=== PATIENT | male | born 1955 | race African-American/Black ===

== ENCOUNTER 2018-12-24 22:36 | Inpatient (IN) | payer BC ==
--- NOTE | 2018-12-24 23:03 | PDOC ---
History of Present Illness - General Chief Complaint: Urinary Problem Stated Complaint: FEVER & URINE PROBLEMS Time Seen by Provider: 12/24/18 23:02 - History of Present Illness Initial Comments: 12/25/18 01:11 63 year old with a history of HTN, HLD, DM, has a defibrillator (on warfarin) who presents with 1 day of fever, dysuria, hematuria. He reports that the blood was streaked throughout his urine. He denies any recent instrumentation of the urethra. Denies wright or any other foreign object. He has no other complaints. ROS GENERAL/CONSTITUTIONAL: + fever or chills. No weakness. HEAD, EYES, EARS, NOSE AND THROAT: No sore throat. CARDIOVASCULAR: No chest pain or shortness of breath RESPIRATORY: No cough, wheezing, or hemoptysis. GASTROINTESTINAL: No nausea, vomiting, diarrhea or constipation. GENITOURINARY: + dysuria, frequency, or change in urination. MUSCULOSKELETAL: No joint or muscle swelling or pain. No neck or back pain. SKIN: No rash PE GENERAL: Awake, alert, and fully oriented, in no acute distress HEAD: No signs of trauma, normocephalic, atraumatic EYES: EOMI, sclera anicteric, conjunctiva clear ENT: oropharynx clear without exudates. Moist mucosa NECK: Normal ROM, supple LUNGS: No distress, speaks full sentences, clear to auscultation bilaterally HEART: Regular rate and rhythm, normal S1 and S2, no murmurs, rubs or gallops, peripheral pulses normal and equal bilaterally. ABDOMEN: Soft, nontender No guarding, no rebound. No masses EXTREMITIES : Normal inspection, Normal range of motion, no edema. No clubbing or cyanosis. NEUROLOGICAL: Cranial nerves II through XII grossly intact. Normal speech, no focal sensorimotor deficits SKIN: Warm, Dry, normal turgor, no rashes or lesions noted GENITAL: uncircumcised male, vertical lie of testes, blood at the urethral meatus, no inguinal lymphadenopathy, nontenderness to epididymal palpation, no erythema, lesions or ulcers MDM DDX including but not limited to: prostatitis vs uti W/U: - sepsis set TX: - tlyenol, rocephin, ivf ED Course: labs largely wnl US with 12 mm nonobstructing L renal stone moderate to severe prostate enlargement pending urine Destiney Ferreira, PGY2 Emergency Medicine 10/21/19 02:13 Past History - Psycho Social/Smoking Cessation Hx Smoking History: Never smoked Hx Alcohol Use: No Drug/Substance Use Hx: No *Physical Exam - Vital Signs Last Vital Signs Temp Pulse Resp BP Pulse Ox 102.4 F H 136 H 19 99/69 94 L 12/24/18 22:44 12/24/18 22:44 12/24/18 22:44 12/24/18 22:44 12/24/18 22:44 ED Treatment Course - LABORATORY CBC & Chemistry Diagram: 12/24/18 22:30 12/24/18 22:30 Discharge - Discharge Information Problems reviewed: Yes Clinical Impression/Diagnosis: Hematuria, Prostatitis, UTI (urinary tract infection) Condition: Stable - Admission Yes - Follow up/Referral Referrals: Moise Luna [Primary Care Provider] - - Patient Discharge Instructions - Post Discharge Activity
[2018-12-24] MEDS ORDERED: ACETAMINOPHEN 1000 MG/100 ML VIAL (NON FORMULARY) IVPB ONE (23:04)
[2018-12-24] MEDS ORDERED: SODIUM CHLORIDE 1,000 ML IV SCH (23:15)
[2018-12-24] MEDS ORDERED: CEFTRIAXONE 1 GM in DEXTROSE 5%-WATER - 100 ML IVPB ONE (23:28)
[2018-12-24] MEDS ORDERED: CEFTRIAXONE 2 GM in DEXTROSE 5%-WATER - 100 ML IVPB ONE (23:41)
[2018-12-24] MEDS ORDERED: CEFTRIAXONE 2 GM/100 ML BAG IVPB ONE (23:57)
[2018-12-25] MEDS ORDERED: CEFTRIAXONE 2 GM-D5W BAG 2 GM/50 ML BAG IVPB ONE
[2018-12-25 00:18] LABS: BASO % 0.5 % (0-2.0); HEMATOCRIT 43.9 % (35.4-49); HEMOGLOBIN 14.6 GM/dL (11.7-16.9); MCH 29.3 pg (25.7-33.7); MCHC 33.2 g/dl (32.0-35.9); MEAN CELL VOLUME 88.3 fl (80-96); MEAN PLT VOLUME 8.1 fl (7.5-11.1); MONO % 6.2 % (3.8-10.2); NEUT % 88.3 % (42.8-82.8); PLATELET COUNT 249 K/MM3 (134-434); RBC 4.97 M/mm3 (4.00-5.60); RDW 13.1 % (11.9-15.9); WHITE BLOOD COUNT 12.9 K/mm3 (4.0-10.0)
[2018-12-25 00:45] LABS: ALBUMIN 3.5 g/dl (3.4-5.0); BILIRUBIN,TOTAL 0.6 mg/dL (0.2-1); BLOOD UREA NITROGEN 20.7 mg/dL (7-18); CREATININE 1.5 mg/dL (0.55-1.3); POTASSIUM 3.6 mmol/L (3.5-5.1); TOT PROT 7.6 g/dl (6.4-8.2)
[2018-12-25 02:29] LABS: INR 2.71 (0.83-1.09); PROTHROMBIN TIME (PATIENT) 32.3 SEC (9.7-13.0)
[2018-12-25 02:30] LABS: URINE APPEARANCE CLOUDY; URINE BILIRUBIN NEGATIVE (NEGATIVE); URINE COLOR YELLOW; URINE GLUCOSE (UA) NEGATIVE (NEGATIVE); URINE KETONE NEGATIVE (NEGATIVE)
[2018-12-25 02:31] LABS: URINE PROTEIN 3+ (NEGATIVE); URINE UROBILINOGEN 0.2 mg/dL (0.2-1.0)
[2018-12-25 02:32] LABS: URINE LEUK ESTERASE 2+ (NEGATIVE); URINE NITRITE NEGATIVE (NEGATIVE)
[2018-12-25 02:44] LABS: EPI CELLS 3 /HPF (0-5/HPF); URINE BACTERIA 105 /hpf (NEGATIVE); URINE RBC 360 /hpf (0-4); URINE WBC 245 /hpf (0-5)
--- NOTE | 2018-12-25 03:26 | HP ---
CHIEF COMPLAINT: hematuria PCP: Dr. Luna; Cardio Dr. Sams (at [facility]) HISTORY OF PRESENT ILLNESS: 63 y.o. M PMH HTN, HLD, BPH, ICD placed 6 yrs ago (& on coumadin) presenting with fever, dysuria and hematuria x 1 day duration. Patient says that over the past few years he has been having hesitancy w/ urination. Yesterday he began to have dysuria and noticed a few drops of blood at the urethral meatus post-void. The dysuria felt like a burning sensation. He denies seeing blood in the toilet during urination. He is also having bilateral testicular pain which has been present for the past few days. Pt says he has seen a urologist in the past and was on flomax but self d/c'd it because it did not work for him. Denies any recent urethral instrumentation. The patient is currently sexually active with 1 partner, his ; denies any recent STI testing but says he has never had or been treated for an STI in the past. ER course was notable for: (1) NA 1L, 1g iv tylenol (2) Rocephin 2mg (3) Recent Travel: denies PAST MEDICAL HISTORY: as per hpi PAST SURGICAL HISTORY: ICD placed 6 yrs ago Social History: lives w/ . works in a supermarket. Smoking: denies Alcohol: denies Drugs: denies Allergies No Known Allergies Allergy (Verified 12/25/18 03:23) PHYSICAL EXAMINATION Vital Signs - 24 hr 12/24/18 22:44 Temperature 102.4 F H Pulse Rate 136 H Respiratory 19 Rate Blood Pressure 99/69 O2 Sat by Pulse 94 L Oximetry (%) GENERAL: AOx3. In NAD> HEENT: MMM. No scleral icterus LUNGS: Breath sounds equal, clear to auscultation bilaterally. No wheezes, and no crackles. No accessory muscle use. HEART: Tachycardic, normal S1 and S2 without murmur, rub or gallop. ABDOMEN: + Suprapubic tenderness. Soft, not distended, normoactive bowel sounds. MUSCULOSKELETAL: No CVA tenderness. : + serosanguinous discharge at urethral meatus. Tenderness to palpation of b/ l testicles. L testicle is firm. RECTAL: Enlarged, boggy prostate. No nodules palpated; prostate is smooth, tender to palpation. UPPER EXTREMITIES: 2+ pulses. No peripheral edema. LOWER EXTREMITIES: 2+ pulses palpated b/l. No calf tenderness. No peripheral edema. Laboratory Results - last 24 hr 12/24/18 12/24/18 12/24/18 22:30 22:30 22:30 WBC 12.9 H RBC 4.97 Hgb 14.6 Hct 43.9 MCV 88.3 MCH 29.3 MCHC 33.2 RDW 13.1 Plt Count 249 MPV 8.1 Absolute Neuts (auto) 11.3 H Neutrophils % 88.3 H Lymphocytes % 5.0 L Monocytes % 6.2 Eosinophils % 0.0 Basophils % 0.5 Nucleated RBC % 0 PT with INR INR PTT (Actin FS) 46.6 H Sodium 135 L Potassium 3.6 Chloride 103 Carbon Dioxide 23 Anion Gap 8 BUN 20.7 H Creatinine 1.5 H Est GFR (CKD-EPI)AfAm 56.21 Est GFR (CKD-EPI)NonAf 48.50 Random Glucose 121 H Lactic Acid Calcium 9.0 Total Bilirubin 0.6 AST 29 ALT 32 Alkaline Phosphatase 71 Total Protein 7.6 Albumin 3.5 Urine Color Urine Appearance Urine pH Ur Specific [place] Urine Protein Urine Glucose (UA) Urine Ketones Urine Blood Urine Nitrite Urine Bilirubin Urine Urobilinogen Ur Leukocyte Esterase Urine WBC (Auto) Urine RBC (Auto) U Epithel Cells (Auto) Urine Bacteria (Auto) 12/24/18 12/24/18 12/25/18 22:30 22:30 00:48 WBC RBC Hgb Hct MCV MCH MCHC RDW Plt Count MPV Absolute Neuts (auto) Neutrophils % Lymphocytes % Monocytes % Eosinophils % Basophils % Nucleated RBC % PT with INR 32.30 H INR 2.71 H PTT (Actin FS) Sodium Potassium Chloride Carbon Dioxide Anion Gap BUN Creatinine Est GFR (CKD-EPI)AfAm Est GFR (CKD-EPI)NonAf Random Glucose Lactic Acid 1.1 Calcium Total Bilirubin AST ALT Alkaline Phosphatase Total Protein Albumin Urine Color Yellow Urine Appearance Cloudy Urine pH 5.0 Ur Specific [place] 1.020 Urine Protein 3+ H Urine Glucose (UA) Negative Urine Ketones Negative Urine Blood Large Urine Nitrite Negative Urine Bilirubin Negative Urine Urobilinogen 0.2 Ur Leukocyte Esterase 2+ H Urine WBC (Auto) 245 Urine RBC (Auto) 360 U Epithel Cells (Auto) 3 Urine Bacteria (Auto) 105 IMAGING Renal U/S: Right is 11.1 cm in length. There is a 2.6 cm complex cyst in the lower pole and 2.8cm complex cyst in the midpole. No stones or hydronephrosis. Left kidney is 13.3 cm in length and contains a 12 mm nonobstructing mid pole stone. 5.1 cm lower pole cyst and 2.0 cm midpole cysts are noted. Prostate gland is moderately to markedly enlarged measuring 6.7 x 5.5 x 6.2 cm. Bilateral ureteral jets identified. There is moderate postvoid residual ASSESSMENT/PLAN: 63 y.o. M PMH HTN, HLD, BPH, ICD placed 6 yrs ago (& on coumadin) presenting with fever, dysuria and hematuria x 1 day duration. #Sepsis 2/2 acute complicated UTI/ prostatitis -Leukocytosis 12.9 -Febrile 102.4F; tachycardic -Renal labs: BUN/Cr 20.7/ 1.5; f/u AM repeat labs -Renal U/s shows enlarged prostate & 12mm non-obstructing L renal stone. Few renal cysts present b/l. -C/w rocephin 1g daily -F/u scrotal U/S -Urology consulted- Dr. Delgado -F/u urine lytes, cultures -IVF -Given 5mg PO vitamin K -Flomax daily #HTN -C/w home meds-- ramipril as per patient, unsure of dose-- med rec -F/u EKG #HLD -F/u w/ pharmacy for med list #FEN -IVF NS @ 100mL/hr -Trend lytes -Na controlled diet #DVT PPX -holding home warfarin; INR in therapeutic range -SCDs #Dispo -Med surg F/u HbA1c-- pt denies having diabetes during our interview ATTENDING PHYSICIAN STATEMENT I saw and evaluated the patient. I reviewed the resident's note and discussed the case with the resident. I agree with the resident's findings and plan as documented. SUBJECTIVE: OBJECTIVE: ASSESSMENT AND PLAN:
[2018-12-25] MEDS: SODIUM CHLORIDE 1,000 ML IV SCH ×2 (04:16→22:10)
--- NOTE | 2018-12-25 04:21 | PN ---
Teaching Attending Note Name of Resident: Destiney Garcia ATTENDING PHYSICIAN STATEMENT I saw and evaluated the patient. I reviewed the resident's note and discussed the case with the resident. I agree with the resident's findings and plan as documented. SUBJECTIVE: 63-year-old -[place]inese male With history of BPH and ICD placement for uncertain reason. complains of fevers and chills associated with burning with urination for 1 day.He reports blood exiting from his urethral meatus post voiding however during voiding states that his urine is yellow. Denies any other discharge from his penis. Reports left tender testicle. Denies any back pain. OBJECTIVE: Last Vital Signs Temp Pulse Resp BP Pulse Ox 102.4 F H 136 H 19 99/69 94 L 12/24/18 22:44 12/24/18 22:44 12/24/18 22:44 12/24/18 22:44 12/24/18 22:44 GENERAL: Well developed, well nourished. Awake and alert. Appeared uncomfortable HEENT: Normocephalic, atraumatic. PERRLA, EOMI. No conjunctival pallor. Sclera are non- icteric. Moist mucous membranes. Oropharynx is clear. NECK: Supple. Full ROM. No JVD. Carotid pulses 2+ and symmetric, without bruits. No thyromegaly. No lymphadenopathy. CARDIOVASCULAR: Regular rate and rhythm. No murmurs, rubs, or gallops. Distal pulses are 2+ and symmetric. PULMONARY: No evidence of respiratory distress. Lungs clear to auscultation bilaterally. No wheezing, rales or rhonchi. ABDOMINAL: Soft. Non-tender. Non-distended. No rebound or guarding. No organomegaly. Normoactive bowel sounds. MUSCULOSKELETAL Normal range of motion at all joints. No bony deformities or tenderness. No CVA tenderness. EXTREMITIES: No cyanosis. No clubbing. No edema. No calf tenderness. SKIN: Warm and dry. Normal capillary refill. No rashes. No jaundice. PSYCHIATRIC: Cooperative. Good eye contact. Appropriate mood and affect. GUtender left testicle, bloody urethral discharge Abnormal Lab Results 12/24/18 12/24/18 12/24/18 22:30 22:30 22:30 WBC 12.9 H Absolute Neuts (auto) 11.3 H Neutrophils % 88.3 H Lymphocytes % 5.0 L PT with INR INR PTT (Actin FS) 46.6 H Sodium 135 L BUN 20.7 H Creatinine 1.5 H Random Glucose 121 H Urine Protein Ur Leukocyte Esterase 12/24/18 12/25/18 22:30 00:48 WBC Absolute Neuts (auto) Neutrophils % Lymphocytes % PT with INR 32.30 H INR 2.71 H PTT (Actin FS) Sodium BUN Creatinine Random Glucose Urine Protein 3+ H Ur Leukocyte Esterase 2+ H pcp-dr mckeon [id number] ASSESSMENT AND PLAN: 63-year-old male with Sepsis secondary to a complicated urinary tract infection. Positive leukocytosis Suspect acute prostatitis and epididymitis. Patient had tender prostate on resident's exam. Most likely secondary to a gram- negative bacteria however should rule out gonorrhea and chlamydia. Bloody urethral discharge may be related to patient being on Coumadin. Unclear reason for why patient is on Coumadin. Requires clarification. MADDY versus CKDno previous baseline kidney function to compare. Admit to [facility] Blood cultures and urine culture Urine GC chlamydia nucleic acid amplification Lactate Flu swab Avoid aspirin or other antiplatelet agents Monitor vital signs and H&H Urology evaluation Ceftriaxone 1 g every 24 hours Chest x-ray IV fluid hydration Avoid nephrotoxins Renal ultrasound EKG In setting of bloody urine would hold Coumadin and give vitamin K to reverse coagulopathy Contact PCP to find out why patient is on Coumadin SCDs for DVT prophylaxis
[2018-12-25] MEDS ORDERED: PHYTONADIONE 5 MG TABLET PO ONE (04:23)
--- NOTE | 2018-12-25 04:50 | PDOC ---
Documentation entered by Pranav Mcgregor SCRIBE, acting as scribe for Tonia Fernando MD. Tonia Fernando MD: This documentation has been prepared by the Balbir phillips Nirvannie, SCRIBE, under my direction and personally reviewed by me in its entirety. I confirm that the documentation accurately reflects all work, treatment, procedures, and medical decision making performed by me. Attending Attestation - Resident Resident Name: Destiney Ferreira - ED Attending Attestation I have performed the following: I have examined & evaluated the patient, The case was reviewed & discussed with the resident, I agree w/resident's findings & plan - HPI HPI: 12/25/18 01:24 The patient is a 63 year old male, with a significant past medical history of HTN, HLD, DM, s/p defibrillation (on Warfarin), who presents to the emergency department with, 1 day of Fever (Tmax 102.4F), dysuria, and hematuria. He denies any recent chest pain or shortness of breath. Primary Care Physician: Dr. Luna - Physicial Exam PE: 12/25/18 01:24 GENERAL: +Febrile. Awake, alert, and fully oriented, in no acute distress HEAD: No signs of trauma EYES: PERRLA, EOMI, sclera anicteric, conjunctiva clear ENT: Auricles normal inspection, hearing grossly normal, nares patent, oropharynx clear without exudates. Moist mucosa NECK: Normal ROM, supple, no lymphadenopathy, JVD, or masses LUNGS: Breath sounds equal, clear to auscultation bilaterally. No wheezes, and no crackles HEART: Regular rate and rhythm, normal S1 and S2, no murmurs, rubs or gallops ABDOMEN: Soft, nontender, normoactive bowel sounds. No guarding, no rebound. No masses PENIS: +Blood in the meatus. EXTREMITIES: Normal range of motion, no edema. No clubbing or cyanosis. No cords, erythema, or tenderness NEUROLOGICAL: Cranial nerves II through XII grossly intact. Normal speech SKIN: Warm, Dry, normal turgor, no rashes or lesions noted. - Medical Decision Making 12/24/18 23:37 Pt likely with prostatitis 12/25/18 01:12 EBC elevated; pt has minimally elevated BUN/Cr 12/25/18 04:49 Pt has prostatitis treated with levaquin and rocephin and admitted. Lactic is normal
[2018-12-25 05:53] LABS: HEMATOCRIT 39.9 % (35.4-49); HEMOGLOBIN 13.6 GM/dL (11.7-16.9); MCH 30.3 pg (25.7-33.7); MCHC 34.1 g/dl (32.0-35.9); MEAN CELL VOLUME 88.9 fl (80-96); MEAN PLT VOLUME 7.6 fl (7.5-11.1); PLATELET COUNT 219 K/MM3 (134-434); RBC 4.49 M/mm3 (4.00-5.60); RDW 13.4 % (11.9-15.9); WHITE BLOOD COUNT 15.5 K/mm3 (4.0-10.0)
[2018-12-25 06:04] LABS: BILIRUBIN,TOTAL 0.6 mg/dL (0.2-1); CALCIUM 8.2 mg/dL (8.5-10.1); CREATININE 1.7 mg/dL (0.55-1.3); MAGNESIUM 1.6 mg/dL (1.8-2.4); PHOSPHOROUS 3.4 mg/dL (2.5-4.9); POTASSIUM 3.9 mmol/L (3.5-5.1); TOT PROT 6.8 g/dl (6.4-8.2)
[2018-12-25] MEDS ORDERED: PHYTONADIONE 5 MG TABLET ONE (06:11)
[2018-12-25] MEDS ORDERED: ACETAMINOPHEN 1000 MG/100 ML VIAL (NON FORMULARY) IVPB ONE (06:59)
[2018-12-25 09:20] LABS: INR 2.41 (0.83-1.09); PROTHROMBIN TIME (PATIENT) 28.7 SEC (9.7-13.0)
[2018-12-25 09:23] LABS: ACTIVATED PTT 43.3 SECONDS (25.2-36.5)
[2018-12-25] MEDS: TAMSULOSIN HCL 0.4 MG CAP PO SCH (09:27)
[2018-12-25 12:11] VITALS: BMI 29.9
--- NOTE | 2018-12-25 13:05 | PN ---
Progress Note (short form) - Note Progress Note: ID CONSULT DICTATED GRAM NEGATIVE SEPSIS PROBABLE L EPIDIDYMITIS GROSS HEMATURIA AWAIT C/S SCROTAL US UROLOGY EVALUATION EMPIRIC MEROPENEM GC/ CHLAMYDIA/ QUANTIFERON FOR COMPLETENESS
--- NOTE | 2018-12-25 13:54 | CONS ---
INFECTIOUS DISEASE CONSULTATION DATE OF CONSULTATION: DATE OF DICTATION: 12/25/2018 HISTORY: The patient is a 63-year-old male history of diabetes mellitus evaluated for gram-negative bacteremia. The patient was in his usual state of health until 1 day prior to admission. He had gone to work, and after returning home, he developed abrupt onset of chills, subjective fever, dysuria, and gross hematuria. The patient states he developed dysuria and gross hematuria at the end of micturition. He presented to the emergency room where he was found to be febrile to 102.4. Adilson blood was noted at the urethral meatus. Patient now complains of pain in the left testicle. He denies any prior similar symptoms. He is followed on a yearly basis by his primary care physician and believes his PSAs have been normal. He denies prior history of sexually transmitted disease. He is . His is healthy. He has not had any recent urological procedures. He was born in [facility] in the [facility] and has been living in the [facility] for many years. No history of TB exposure. PAST MEDICAL HISTORY: Positive for diabetes mellitus, hypertension, hyperlipidemia. PAST SURGICAL HISTORY: Status post implanted defibrillator. ALLERGIES: No known allergies. MEDICATIONS: Include ceftriaxone, Levaquin, Flomax. SOCIAL HISTORY: He resides in the community with his significant other. Nonsmoker. Nondrinker. 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 SYSTEMS REVIEW: Neurologic: No loss of consciousness, seizure activity, focal weakness. Cardiac: Negative chest pain or palpitations. Respiratory: Negative cough or sputum production. Gastrointestinal: Negative vomiting or diarrhea. Genitourinary: As per HPI. LABORATORY DATA: White count 15.5, hematocrit 39.9, platelets 219, BUN 19, creatinine 1.7. Liver enzymes normal. Urinalysis 245 white cells, 360 red cells. Blood cultures, gram-negative rods. Sonogram of the kidneys and bladder reveal a nonobstructing left renal stone and an enlarged prostate. PHYSICAL EXAMINATION: General: He is awake and alert. He is in no acute distress at rest. Vital Signs: Temperature 102, blood pressure 109/62, pulse 94 regular, respirations 18 per minute. HEENT: Sclerae anicteric. Heart: Sounds S1, S2. Lungs: Clear. Abdomen: Soft. No suprapubic tenderness. Extremities: Negative for edema. Genitourinary: Examination of the genitalia, no penile shaft lesions noted. There is exquisite tenderness present left epididymis with no appreciable erythema or swelling. There is blood noted at the urethral meatus. IMPRESSION: 1. Gram-negative bacteremia/sepsis secondary to genitourinary focus. 2. Probable acute left epididymitis. 3. Gross hematuria. 4. Azotemia. 5. History of diabetes mellitus. PLAN: Await cultures and scrotal ultrasound. Urology evaluation. Empiric antibiotic coverage with Meropenem. Await GC and Chlamydia screen and QuantiFERON for completeness. Case discussed with patient's present at the time of the examination. Thank you for the kind referral. DICK JONES M.D. [id number]
--- NOTE | 2018-12-25 13:56 | CON.GU ---
Consult Consult Specialty:: Referred by:: Lani Reason for Consultation:: prostatitis - History of Present Illness Chief Complaint: fever, dysuria, hematuria History of Present Illness: 63 year old male, with a significant past medical history of HTN, HLD, DM, s/p defibrillation (on Warfarin), who presents to the emergency department with, 1 day of Fever (Tmax 102.4F), dysuria, and hematuria. He denies any recent chest pain or shortness of breath. cons req. Pt also c/o L testicular pain and diff voiding. Primary Care Physician: Dr. Luna - History Source History Provided By: Patient, Medical Record Limitations to Obtaining History: No Limitations - Alcohol/Substance Use Hx Alcohol Use: No - Smoking History Smoking history: Never smoked Have you smoked in the past 12 months: No Home Medications - Allergies Allergies/Adverse Reactions: Allergies Allergy/AdvReac Type Severity Reaction Status Date / Time No Known Allergies Allergy Verified 12/25/18 03:23 - Home Medications Home Medications: Ambulatory Orders Atorvastatin Ca [Lipitor] 40 mg PO HS 12/25/18 Metoprolol Succinate [Toprol Xl] 25 mg PO AM 12/25/18 Metoprolol Succinate [Toprol Xl] 100 mg PO DAILY 12/25/18 Ramipril [Altace] 5 mg PO AM 12/25/18 Warfarin Sodium [Coumadin] 7.5 mg PO DAILY 12/25/18 Review of Systems - Review of Systems Genitourinary: reports: Dysuria, Hematuria, Testicular Pain, Testicular Swelling Physical Exam- Vital Signs: Vital Signs Temperature 102 F H 12/25/18 09:00 Pulse Rate 94 H 12/25/18 09:00 Respiratory Rate 18 12/25/18 09:00 Blood Pressure 109/62 12/25/18 09:00 O2 Sat by Pulse Oximetry (%) 98 12/25/18 09:00 Constitutional: Yes: Well Nourished, No Distress, Calm Gastrointestinal: Yes: Normal Bowel Sounds, Soft Renal/: No: CVA Tenderness - Left, CVA Tenderness - Right Kidneys: Yes: WNL Pelvis: Yes: WNL, Bladder Non Palpable (L) Testicles: Yes: Tenderness Scrotum: Yes: Spermatocele (R), Varicocele (L), Other Penis: Yes: WNL Prostate Exam: Yes: Swollen, Tenderness Extremities: Yes: WNL Labs: CBC, BMP 12/25/18 05:24 12/25/18 05:24 Imaging - Results Ultrasound: Pending, Report Reviewed, Image Reviewed Problem List - Problems (1) Hematuria Code(s): R31.9 - HEMATURIA, UNSPECIFIED (2) Prostatitis Assessment/Plan: tamsulosin Code(s): N41.9 - INFLAMMATORY DISEASE OF PROSTATE, UNSPECIFIED (3) UTI (urinary tract infection) Code(s): N39.0 - URINARY TRACT INFECTION, SITE NOT SPECIFIED (4) Urethritis, nonspecific Code(s): N34.1 - NONSPECIFIC URETHRITIS (5) Renal calculus Code(s): N20.0 - CALCULUS OF KIDNEY (6) BPH loc w urin obs/LUTS Code(s): N40.1 - BENIGN PROSTATIC HYPERPLASIA WITH LOWER URINARY TRACT SYMP
[2018-12-25] MEDS ORDERED: MEROPENEM 1 GM VIAL (RESTRICTED TO ID) IVPB ONE ×2 (14:30→17:55)
[2018-12-25] MEDS ORDERED: DEXTROSE 5%-WATER 100 ML IVPB ONE ×2 (14:30→17:55)
[2018-12-25] MEDS: MEROPENEM 1 GM in DEXTROSE 5%-WATER 100 ML IVPB SCH ×2 (15:11→18:01)
[2018-12-25] MEDS: ACETAMINOPHEN 325 MG TABLET (FP) PO PRN (15:30)
--- NOTE | 2018-12-25 15:54 | EKG ---
Test Reason : Blood Pressure : / mmHG Vent. Rate : 090 BPM Atrial Rate : 090 BPM P-R Int : 162 ms QRS Dur : 176 ms QT Int : 416 ms P-R-T Axes : 041 -83 023 degrees QTc Int : 508 ms Atrial-sensed ventricular-paced rhythm Biventricular pacemaker detected ABNORMAL ECG NO PREVIOUS ECGS AVAILABLE Confirmed by ALISSA CLAY, HOMERO ([id number]) on 12/25/2018 3:53:36 PM Referred By: Confirmed By:HOMERO MAXWELL MD
--- NOTE | 2018-12-25 17:50 | CON.CARD ---
Consult Consult Specialty:: Cardiology Referred by:: Hospitalist Reason for Consultation:: Cardiac evaluation - History of Present Illness Chief Complaint: Admitted with hematuria History of Present Illness: Patient is a 63 year old male with underlying history of HTN, hypercholesterolemia, BPH and ICD who presents with fever, dysuria and hematuria. He denies chest pain, shortness of breath or palpitations. He denies paroxysmal nocturnal dyspnea or orthopnea. He denies headache or lightheadedness. He denies nausea, vomiting, diarrhea or abdominal pain. He also complains of testicular pain for the past few days. He has not had STDs in the past and denies kidney stones. He has had evaluation for NSVT and was ruled out for WPW or dual AV jessica pathway physiology. Building Cleaning Supervisor : Diana Velez MD EP : Marco Schmid MD ([facility]) - History Source History Provided By: Patient, Medical Record Limitations to Obtaining History: No Limitations - Past Medical History Cardio/Vascular: Yes: HTN, Hyperlipdemia, Other (Presence of AICD) - Past Surgical History Past Surgical History: Yes: AICD - Alcohol/Substance Use Hx Alcohol Use: No - Smoking History Smoking history: Never smoked Have you smoked in the past 12 months: No Home Medications - Allergies Allergies/Adverse Reactions: Allergies Allergy/AdvReac Type Severity Reaction Status Date / Time No Known Allergies Allergy Verified 12/25/18 03:23 - Home Medications Home Medications: Ambulatory Orders Atorvastatin Ca [Lipitor] 40 mg PO HS 12/25/18 Metoprolol Succinate [Toprol Xl] 25 mg PO AM 12/25/18 Metoprolol Succinate [Toprol Xl] 100 mg PO DAILY 12/25/18 Ramipril [Altace] 5 mg PO AM 12/25/18 Warfarin Sodium [Coumadin] 7.5 mg PO DAILY 12/25/18 Review of Systems - Review of Systems Constitutional: reports: Chills, Fever Cardiovascular: denies: Chest Pain, Palpitations, Shortness of Breath Respiratory: denies: Cough, Hemoptysis, Orthopnea, PND, SOB, SOB on Exertion Gastrointestinal: denies: Abdominal Pain Genitourinary: reports: Dysuria, Hematuria, Testicular Pain Musculoskeletal: denies: Back Pain, Joint Pain Neurological: denies: Dizziness, Headache, Seizure, Syncope Vital Signs: Vital Signs Temperature 100.8 F H 12/25/18 17:40 Pulse Rate 94 H 12/25/18 17:40 Respiratory Rate 18 12/25/18 17:40 Blood Pressure 129/76 12/25/18 15:00 O2 Sat by Pulse Oximetry (%) 98 12/25/18 09:00 Eyes: Yes: PERRL HENT: Yes: Atraumatic Neck: Yes: Supple Respiratory: Yes: CTA Bilaterally Gastrointestinal: Yes: Normal Bowel Sounds, Soft. No: Tenderness Renal/: Yes: Hematuria Cardiovascular: Yes: Regular Rate and Rhythm JVD: No PMI: Non-Displaced Heart Sounds: Yes: S1, S2. No: Gallop Edema: No - Other Data Labs, Other Data: CBC, BMP 12/25/18 05:24 12/25/18 05:24 INR, PTT INR 2.41 (0.83-1.09) H 12/25/18 08:20 Atrial sensed ventricular paced rhythm Imaging - Results Chest X-ray: Report Reviewed (Unremarkable) EKG: Report Reviewed Problem List - Problems (1) HTN (hypertension) Code(s): I10 - ESSENTIAL (PRIMARY) HYPERTENSION (2) Hypercholesterolemia Code(s): E78.00 - PURE HYPERCHOLESTEROLEMIA, UNSPECIFIED (3) Presence of implantable cardioverter-defibrillator (ICD) Code(s): Z95.810 - PRESENCE OF AUTOMATIC (IMPLANTABLE) CARDIAC DEFIBRILLATOR (4) BPH loc w urin obs/LUTS Code(s): N40.1 - BENIGN PROSTATIC HYPERPLASIA WITH LOWER URINARY TRACT SYMP (5) Hematuria Code(s): R31.9 - HEMATURIA, UNSPECIFIED (6) Prostatitis Code(s): N41.9 - INFLAMMATORY DISEASE OF PROSTATE, UNSPECIFIED (7) UTI (urinary tract infection) Code(s): N39.0 - URINARY TRACT INFECTION, SITE NOT SPECIFIED Assessment/Plan 1. Hematuria and dysuria suggests UTI, ? prostatitis 2. HTN 3. Hypercholesterolemia 4. Presence of ICD PLAN: 1. Patient states that he has been taking Warfarin because of thrombus (points to his heart). Will clarify the reason for anticoagulation. May need to hold if continues to have hematuria 2. Continue Metoprolol ER and Ramipril as tolerated. 3. Continue Atorvastatin 4. input noted 5. Empiric antibiotics coverage 6. Hydration 7. Obtain records from his director trial Further plans are to follow Isaak Lerma MD Follow up with his director trial upon discharge from hospital
--- NOTE | 2018-12-25 18:19 | PN ---
Teaching Attending Note Name of Resident: Star Bolden ATTENDING PHYSICIAN STATEMENT I saw and evaluated the patient. I reviewed the resident's note and discussed the case with the resident. I agree with the resident's findings and plan as documented. SUBJECTIVE: Patient complaining of left testicular pain. OBJECTIVE: Vital Signs Period Temp Pulse Resp BP Sys/Persaud Pulse Ox Last 24 Hr 98.2 F-102.8 F 90-136 17-19 99-129/62-76 94-98 HEART: S1S2, tachycardic LUNGS: Clear ABDOMEN: Soft, non-tender, non-distended, normal BS : Both testes tender to palpation L>R, (+) bloody drainage from urethra EXTREMITIES: No edema Laboratory Results - last 24 hr 12/24/18 12/24/18 12/24/18 22:30 22:30 22:30 WBC 12.9 H RBC 4.97 Hgb 14.6 Hct 43.9 MCV 88.3 MCH 29.3 MCHC 33.2 RDW 13.1 Plt Count 249 MPV 8.1 Absolute Neuts (auto) 11.3 H Neutrophils % 88.3 H Lymphocytes % 5.0 L Monocytes % 6.2 Eosinophils % 0.0 Basophils % 0.5 Nucleated RBC % 0 PT with INR INR PTT (Actin FS) 46.6 H Sodium 135 L Potassium 3.6 Chloride 103 Carbon Dioxide 23 Anion Gap 8 BUN 20.7 H Creatinine 1.5 H Est GFR (CKD-EPI)AfAm 56.21 Est GFR (CKD-EPI)NonAf 48.50 Random Glucose 121 H Hemoglobin A1c % Lactic Acid Calcium 9.0 Phosphorus Magnesium Total Bilirubin 0.6 AST 29 ALT 32 Alkaline Phosphatase 71 Total Protein 7.6 Albumin 3.5 Urine Color Urine Appearance Urine pH Ur Specific [place] Urine Protein Urine Glucose (UA) Urine Ketones Urine Blood Urine Nitrite Urine Bilirubin Urine Urobilinogen Ur Leukocyte Esterase Urine WBC (Auto) Urine RBC (Auto) U Epithel Cells (Auto) Urine Bacteria (Auto) 12/24/18 12/24/18 12/25/18 22:30 22:30 00:48 WBC RBC Hgb Hct MCV MCH MCHC RDW Plt Count MPV Absolute Neuts (auto) Neutrophils % Lymphocytes % Monocytes % Eosinophils % Basophils % Nucleated RBC % PT with INR 32.30 H INR 2.71 H PTT (Actin FS) Sodium Potassium Chloride Carbon Dioxide Anion Gap BUN Creatinine Est GFR (CKD-EPI)AfAm Est GFR (CKD-EPI)NonAf Random Glucose Hemoglobin A1c % Lactic Acid 1.1 Calcium Phosphorus Magnesium Total Bilirubin AST ALT Alkaline Phosphatase Total Protein Albumin Urine Color Yellow Urine Appearance Cloudy Urine pH 5.0 Ur Specific [place] 1.020 Urine Protein 3+ H Urine Glucose (UA) Negative Urine Ketones Negative Urine Blood Large Urine Nitrite Negative Urine Bilirubin Negative Urine Urobilinogen 0.2 Ur Leukocyte Esterase 2+ H Urine WBC (Auto) 245 Urine RBC (Auto) 360 U Epithel Cells (Auto) 3 Urine Bacteria (Auto) 105 12/25/18 12/25/18 12/25/18 05:24 05:24 05:24 WBC 15.5 H RBC 4.49 Hgb 13.6 Hct 39.9 MCV 88.9 MCH 30.3 MCHC 34.1 RDW 13.4 Plt Count 219 MPV 7.6 Absolute Neuts (auto) Neutrophils % Lymphocytes % Monocytes % Eosinophils % Basophils % Nucleated RBC % PT with INR INR PTT (Actin FS) Sodium 137 Potassium 3.9 Chloride 103 Carbon Dioxide 26 Anion Gap 8 BUN 19.0 H Creatinine 1.7 H Est GFR (CKD-EPI)AfAm 48.32 Est GFR (CKD-EPI)NonAf 41.69 Random Glucose 129 H Hemoglobin A1c % 5.9 Lactic Acid Calcium 8.2 L Phosphorus 3.4 Magnesium 1.6 L Total Bilirubin 0.6 AST 23 ALT 26 Alkaline Phosphatase 62 Total Protein 6.8 Albumin 3.0 L Urine Color Urine Appearance Urine pH Ur Specific [place] Urine Protein Urine Glucose (UA) Urine Ketones Urine Blood Urine Nitrite Urine Bilirubin Urine Urobilinogen Ur Leukocyte Esterase Urine WBC (Auto) Urine RBC (Auto) U Epithel Cells (Auto) Urine Bacteria (Auto) 12/25/18 12/25/18 08:20 08:20 WBC RBC Hgb Hct MCV MCH MCHC RDW Plt Count MPV Absolute Neuts (auto) Neutrophils % Lymphocytes % Monocytes % Eosinophils % Basophils % Nucleated RBC % PT with INR 28.70 H INR 2.41 H PTT (Actin FS) 43.3 H Sodium Potassium Chloride Carbon Dioxide Anion Gap BUN Creatinine Est GFR (CKD-EPI)AfAm Est GFR (CKD-EPI)NonAf Random Glucose Hemoglobin A1c % Lactic Acid 1.3 Calcium Phosphorus Magnesium Total Bilirubin AST ALT Alkaline Phosphatase Total Protein Albumin Urine Color Urine Appearance Urine pH Ur Specific [place] Urine Protein Urine Glucose (UA) Urine Ketones Urine Blood Urine Nitrite Urine Bilirubin Urine Urobilinogen Ur Leukocyte Esterase Urine WBC (Auto) Urine RBC (Auto) U Epithel Cells (Auto) Urine Bacteria (Auto) Current Medications Generic Name Dose Route Start Last Admin Trade Name Ilda PRN Reason Stop Dose Admin Acetaminophen 650 mg 12/25/18 15:13 12/25/18 15:30 Tylenol - PO 650 mg Q6H PRN Administration FEVER Sodium Chloride 1,000 mls @ 100 mls/hr 12/25/18 03:45 12/25/18 04:16 Normal Saline - IV 100 mls/hr ASDIR MURALI Administration Meropenem 1 gm/ Dextrose 100 mls @ 200 mls/hr 12/25/18 13:15 12/25/18 18:01 IVPB 200 mls/hr Q8H-IV MURALI Administration Tamsulosin HCl 0.4 mg 12/25/18 08:30 12/25/18 09:27 Flomax - PO 0.4 mg DAILY@0830 MURALI Administration ASSESSMENT AND PLAN: This is a 63 year old man with a history of HTN, hyperlipidemia, AICD, BPH, who presented to the ED with fever, dysuria, hematuria. 1. Sepsis secondary to acute prostatitis and epididymitis - Given Levaquin in ED then started on ceftriaxone - ID consult appreciated - Abx changed to meropenem - Urine culture pending - Blood cultures (2 of 2) positive - follow-up identification and sensitivities - GC, Chlamydia pending - Scrotal US shows right scrotal cyst likely spermatocele, large left varicocele 2. Gross hematuria - Renal/bladder US shows normal kidneys, 12 mm left kidney stone, markedly enlarged prostate with moderate PVR - Hold Coumadin - Monitor hemoglobin 3. Non-obstructing left nephrolithiasis 4. BPH - Continue Flomax 5. HTN - Continue Toprol XL, Altace 6. Hyperlipidemia - Continue Lipitor 7. History of AICD - Patient unclear about why he has AICD, also about why he is taking Coumadin - ? cardiomyopathy - will try to obtain prior records
[2018-12-25] MEDS ORDERED: MAGNESIUM OXIDE 400 MG TABLET (FP) PO ONE (18:34)
--- NOTE | 2018-12-25 18:39 | PN ---
Physical Exam: SUBJECTIVE: Patient seen and examined NAEON. Endorses pain to Left testicle >Right. OBJECTIVE: Vital Signs Period Temp Pulse Resp BP Sys/Persaud Pulse Ox Last 24 Hr 98.2 F-102.8 F 90-136 17-19 99-129/62-76 94-98 GENERAL: The patient is awake, alert, in no acute distress. HEAD: NC/AT EYES: sclera anicteric, conjunctiva clear. ENT: Ears normal, nares patent, moist mucous membranes. NECK: Trachea midline, full range of motion, supple. LUNGS: CTA b/l, no wheezes, no crackles, no accessory muscle use. HEART: Regular rate and rhythm, S1, S2 without murmur, rub or gallop. ABDOMEN: Soft, nontender, nondistended, no guarding, no rebound, no masses. GROIN: tendernes to SRUTHI of prostate. TTP of Left epipdymitis, seromucopurulent drainage of meatus EXTREMITIES: 2+ pulses, warm, well-perfused, no edema. NEUROLOGICAL: Normal speech PSYCH: Normal mood, normal affect. SKIN: Warm, dry, normal turgor, no rashes or lesions noted Laboratory Results - last 24 hr 12/24/18 12/24/18 12/24/18 22:30 22:30 22:30 WBC 12.9 H RBC 4.97 Hgb 14.6 Hct 43.9 MCV 88.3 MCH 29.3 MCHC 33.2 RDW 13.1 Plt Count 249 MPV 8.1 Absolute Neuts (auto) 11.3 H Neutrophils % 88.3 H Lymphocytes % 5.0 L Monocytes % 6.2 Eosinophils % 0.0 Basophils % 0.5 Nucleated RBC % 0 PT with INR INR PTT (Actin FS) 46.6 H Sodium 135 L Potassium 3.6 Chloride 103 Carbon Dioxide 23 Anion Gap 8 BUN 20.7 H Creatinine 1.5 H Est GFR (CKD-EPI)AfAm 56.21 Est GFR (CKD-EPI)NonAf 48.50 Random Glucose 121 H Hemoglobin A1c % Lactic Acid Calcium 9.0 Phosphorus Magnesium Total Bilirubin 0.6 AST 29 ALT 32 Alkaline Phosphatase 71 Total Protein 7.6 Albumin 3.5 Urine Color Urine Appearance Urine pH Ur Specific [place] Urine Protein Urine Glucose (UA) Urine Ketones Urine Blood Urine Nitrite Urine Bilirubin Urine Urobilinogen Ur Leukocyte Esterase Urine WBC (Auto) Urine RBC (Auto) U Epithel Cells (Auto) Urine Bacteria (Auto) 12/24/18 12/24/18 12/25/18 22:30 22:30 00:48 WBC RBC Hgb Hct MCV MCH MCHC RDW Plt Count MPV Absolute Neuts (auto) Neutrophils % Lymphocytes % Monocytes % Eosinophils % Basophils % Nucleated RBC % PT with INR 32.30 H INR 2.71 H PTT (Actin FS) Sodium Potassium Chloride Carbon Dioxide Anion Gap BUN Creatinine Est GFR (CKD-EPI)AfAm Est GFR (CKD-EPI)NonAf Random Glucose Hemoglobin A1c % Lactic Acid 1.1 Calcium Phosphorus Magnesium Total Bilirubin AST ALT Alkaline Phosphatase Total Protein Albumin Urine Color Yellow Urine Appearance Cloudy Urine pH 5.0 Ur Specific [place] 1.020 Urine Protein 3+ H Urine Glucose (UA) Negative Urine Ketones Negative Urine Blood Large Urine Nitrite Negative Urine Bilirubin Negative Urine Urobilinogen 0.2 Ur Leukocyte Esterase 2+ H Urine WBC (Auto) 245 Urine RBC (Auto) 360 U Epithel Cells (Auto) 3 Urine Bacteria (Auto) 105 12/25/18 12/25/18 12/25/18 05:24 05:24 05:24 WBC 15.5 H RBC 4.49 Hgb 13.6 Hct 39.9 MCV 88.9 MCH 30.3 MCHC 34.1 RDW 13.4 Plt Count 219 MPV 7.6 Absolute Neuts (auto) Neutrophils % Lymphocytes % Monocytes % Eosinophils % Basophils % Nucleated RBC % PT with INR INR PTT (Actin FS) Sodium 137 Potassium 3.9 Chloride 103 Carbon Dioxide 26 Anion Gap 8 BUN 19.0 H Creatinine 1.7 H Est GFR (CKD-EPI)AfAm 48.32 Est GFR (CKD-EPI)NonAf 41.69 Random Glucose 129 H Hemoglobin A1c % 5.9 Lactic Acid Calcium 8.2 L Phosphorus 3.4 Magnesium 1.6 L Total Bilirubin 0.6 AST 23 ALT 26 Alkaline Phosphatase 62 Total Protein 6.8 Albumin 3.0 L Urine Color Urine Appearance Urine pH Ur Specific [place] Urine Protein Urine Glucose (UA) Urine Ketones Urine Blood Urine Nitrite Urine Bilirubin Urine Urobilinogen Ur Leukocyte Esterase Urine WBC (Auto) Urine RBC (Auto) U Epithel Cells (Auto) Urine Bacteria (Auto) 12/25/18 12/25/18 08:20 08:20 WBC RBC Hgb Hct MCV MCH MCHC RDW Plt Count MPV Absolute Neuts (auto) Neutrophils % Lymphocytes % Monocytes % Eosinophils % Basophils % Nucleated RBC % PT with INR 28.70 H INR 2.41 H PTT (Actin FS) 43.3 H Sodium Potassium Chloride Carbon Dioxide Anion Gap BUN Creatinine Est GFR (CKD-EPI)AfAm Est GFR (CKD-EPI)NonAf Random Glucose Hemoglobin A1c % Lactic Acid 1.3 Calcium Phosphorus Magnesium Total Bilirubin AST ALT Alkaline Phosphatase Total Protein Albumin Urine Color Urine Appearance Urine pH Ur Specific [place] Urine Protein Urine Glucose (UA) Urine Ketones Urine Blood Urine Nitrite Urine Bilirubin Urine Urobilinogen Ur Leukocyte Esterase Urine WBC (Auto) Urine RBC (Auto) U Epithel Cells (Auto) Urine Bacteria (Auto) Active Medications Generic Name Dose Route Start Last Admin Trade Name Freq PRN Reason Stop Dose Admin Acetaminophen 650 mg 12/25/18 15:13 12/25/18 15:30 Tylenol - PO 650 mg Q6H PRN Administration FEVER Sodium Chloride 1,000 mls @ 100 mls/hr 12/25/18 03:45 12/25/18 04:16 Normal Saline - IV 100 mls/hr ASDIR MURALI Administration Meropenem 1 gm/ Dextrose 100 mls @ 200 mls/hr 12/25/18 13:15 12/25/18 18:01 IVPB 200 mls/hr Q8H-IV MURALI Administration Tamsulosin HCl 0.4 mg 12/25/18 08:30 12/25/18 09:27 Flomax - PO 0.4 mg DAILY@0830 MURALI Administration ASSESSMENT/PLAN: 63 y.o. 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 #Sepsis 2/2 acute complicated UTI/ prostatitis > Renal U/S: Left renal pelvis stone 12mm, b/l renal cysts, enlarged prostate > Scrotal U/S: Right scrotal cyst(possible spermatocele), Left-sided varicocele , no torsion > INR 2.7 -C/w rocephin 1g daily --dc'd -ID consulted --meopenem -Urology consulted- Dr. Delgado --recs pending -IVF -Given 5mg PO vitamin K -Flomax daily #HFrEF w/ AICD and coumadin(hx of cardiac thrombus in ) > EKG: ventricle paced rhythm, QTc 508 -cardio consult #HTN -C/w home meds-- ramipril, metoprolol #HLD -F/u w/ pharmacy for med list #FEN -IVF NS @ 100mL/hr -Trend lytes -Na controlled diet #DVT PPX -holding home warfarin --until resolution of hematuria -SCDs #Dispo -Med surg Visit type - Emergency Visit Emergency Visit: No - New Patient This patient is new to me today: No - Critical Care Critical Care patient: No ATTENDING PHYSICIAN STATEMENT I saw and evaluated the patient. I reviewed the resident's note and discussed the case with the resident. I agree with the resident's findings and plan as documented. SUBJECTIVE: OBJECTIVE: ASSESSMENT AND PLAN:
[2018-12-25] MEDS: ATORVASTATIN CA 40 MG TABLET (FP) PO SCH (21:49)
[2018-12-25] MEDS ORDERED: CEFTRIAXONE 1,000 MG in DEXTROSE 5%-WATER - 50 ML IVPB ONE (23:00)
[2018-12-25] MEDS ORDERED: CEFTRIAXONE 1,000 MG in DEXTROSE 5%-WATER - 50 ML IVPB SCH (23:00)
[2018-12-26] MEDS ORDERED: CEFTRIAXONE 1 GM in DEXTROSE 5%-WATER - 50 ML IVPB SCH
[2018-12-26] MEDS: ACETAMINOPHEN 325 MG TABLET (FP) PO PRN ×2 (00:46→14:10)
[2018-12-26] MEDS ORDERED: PT OWN MED DRAWER 7, Y5N ONE ×2 (01:41→17:20)
[2018-12-26] MEDS: MEROPENEM 1 GM in DEXTROSE 5%-WATER 100 ML IVPB SCH ×3 (02:44→17:23)
[2018-12-26] MEDS ORDERED: RAMIPRIL 5 MG CAPSULE (FP) PO SCH (07:00)
[2018-12-26] MEDS ORDERED: metoPROLOL SUCCINATE 25 MG TAB.SR.24H (FP) PO SCH (07:00)
[2018-12-26 09:02] LABS: HEMATOCRIT 40.6 % (35.4-49); HEMOGLOBIN 13.6 GM/dL (11.7-16.9); MCH 29.9 pg (25.7-33.7); MCHC 33.4 g/dl (32.0-35.9); MEAN CELL VOLUME 89.4 fl (80-96); PLATELET COUNT 191 K/MM3 (134-434); RBC 4.54 M/mm3 (4.00-5.60); RDW 13.6 % (11.9-15.9); WHITE BLOOD COUNT 14.2 K/mm3 (4.0-10.0)
[2018-12-26 09:21] LABS: INR 1.69 (0.83-1.09)
[2018-12-26 09:39] LABS: CREATININE 1.3 mg/dL (0.55-1.3); MAGNESIUM 2.1 mg/dL (1.8-2.4); PHOSPHOROUS 1.6 mg/dL (2.5-4.9); POTASSIUM 3.7 mmol/L (3.5-5.1)
[2018-12-26] MEDS ORDERED: DEXTROSE 5%-WATER 100 ML IVPB ONE ×2 (10:26→17:13)
[2018-12-26] MEDS ORDERED: MEROPENEM 1 GM VIAL (RESTRICTED TO ID) IVPB ONE ×2 (10:26→17:13)
[2018-12-26] MEDS: TAMSULOSIN HCL 0.4 MG CAP PO SCH (10:28)
[2018-12-26] MEDS: NAPH,MB-DB/K PH,MBDB POWDER PACKET PO SCH ×2 (10:28→17:24)
[2018-12-26] MEDS: SODIUM CHLORIDE 1,000 ML IV SCH (12:47)
--- NOTE | 2018-12-26 12:51 | ECHO ---
Version: 1 Name: PRINCE EBONI Exam: Adult Echocardiogram Study Date: 12/26/2018, 9:51 AM Age: 63 Years MMode/2D Measurements & Calculations IVSd: 1.18 cm LVIDs: 3.3 cm LVIDd: 5.4 cm LVPWd: 1.03 cm LAV (MOD-bp): 30.9 ml LVOT diam: 1.97 cm Ao root diam: 3.1 cm LA dimension: 3.7 cm Doppler Measurements & Calculations MV E max dawson: 107.0 cm/sec Med E/e': 19.3 MV A max dawson: 36.9 cm/sec Med Peak E' Dawson: 5.5 cm/sec MV E/A: 2.9 Lat E/e': 8.1 Lat Peak E' Dawson: 13.3 cm/sec MR max P.2 mmHg Ao max P.7 mmHg Ao V2 max: 156.1 cm/sec TR max dawson: 223.5 cm/sec TR max P.0 mmHg Procedure A complete two-dimensional transthoracic echocardiogram was performed (2D, M-mode, Doppler and color flow Doppler). The patient was in a tachycardic rhythm during the exam. Left Ventricle The left ventricular size, thickness and function are normal. Right Ventricle Pacer wire noted in the RV. The right ventricle is normal in size and function. Atria Normal left and right atrial size and function. Mitral Valve There is mild mitral valve thickening. There is trace mitral regurgitation. Tricuspid Valve The tricuspid valve is normal in structure and function. There is mild tricuspid regurgitation. Righ t ventricular systolic pressure is 25 mmhg. Aortic Valve There is mild aortic sclerosis.;. No hemodynamically significant valvular aortic stenosis. Pulmonic Valve The pulmonic valve is normal in structure and function. Great Vessels The aortic root is normal size. Pericardium/Pleura There is no pericardial effusion. Summary Statements The patient was in a tachycardic rhythm during the exam. The left ventricular size, thickness and function are normal The right ventricle is normal in size and function. Pacer wire noted in the RV Amrit Lisandra 12/26/2018, 11:51 AM Ordering Physician: PATRICK FOWLER Performed By: Brenna Herrera
--- NOTE | 2018-12-26 14:29 | PN ---
Progress Note, Physician Chief Complaint: Not in distress History of Present Illness: Patient was seen and examined. Awake and alert. Chart was reviewed Denies chest pain, SOB or palpitations - Current Medication List Current Medications: Active Medications Acetaminophen (Tylenol -) 650 mg PO Q6H PRN PRN Reason: FEVER Last Admin: 12/26/18 14:10 Dose: 650 mg Atorvastatin Calcium (Lipitor -) 40 mg PO HS [facility] Last Admin: 12/25/18 21:49 Dose: 40 mg Sodium Chloride (Normal Saline -) 1,000 mls @ 100 mls/hr IV ASDIR MURALI Last Admin: 12/26/18 12:47 Dose: Not Given Meropenem 1 gm/ Dextrose 100 mls @ 200 mls/hr IVPB Q8H-IV MURALI Last Admin: 12/26/18 10:28 Dose: 200 mls/hr Potassium Phos/Sodium Phos (Phos-Nak Packet -) 1 packet PO Q6H [facility] Stop: 12/26/18 16:16 Last Admin: 12/26/18 10:28 Dose: 1 packet Tamsulosin HCl (Flomax -) 0.4 mg PO DAILY@0830 [facility] Last Admin: 12/26/18 10:28 Dose: 0.4 mg - Objective Vital Signs: Vital Signs Temperature 99.5 F 12/26/18 05:58 Pulse Rate 96 H 12/26/18 05:58 Respiratory Rate 16 12/26/18 05:58 Blood Pressure 95/61 12/26/18 05:58 O2 Sat by Pulse Oximetry (%) 98 12/25/18 21:00 Eyes: Yes: PERRL HENT: Yes: Atraumatic Neck: Yes: Supple Cardiovascular: Yes: Regular Rate and Rhythm, S1, S2 Respiratory: Yes: CTA Bilaterally Gastrointestinal: Yes: Normal Bowel Sounds, Soft. No: Tenderness Edema: No Labs: CBC, BMP 12/26/18 08:15 12/26/18 08:15 INR, PTT INR 1.69 (0.83-1.09) H 12/26/18 08:15 Problem List - Problems (1) HTN (hypertension) Code(s): I10 - ESSENTIAL (PRIMARY) HYPERTENSION (2) Hypercholesterolemia Code(s): E78.00 - PURE HYPERCHOLESTEROLEMIA, UNSPECIFIED (3) Presence of implantable cardioverter-defibrillator (ICD) Code(s): Z95.810 - PRESENCE OF AUTOMATIC (IMPLANTABLE) CARDIAC DEFIBRILLATOR (4) BPH loc w urin obs/LUTS Code(s): N40.1 - BENIGN PROSTATIC HYPERPLASIA WITH LOWER URINARY TRACT SYMP (5) Hematuria Code(s): R31.9 - HEMATURIA, UNSPECIFIED (6) Prostatitis Code(s): N41.9 - INFLAMMATORY DISEASE OF PROSTATE, UNSPECIFIED (7) UTI (urinary tract infection) Code(s): N39.0 - URINARY TRACT INFECTION, SITE NOT SPECIFIED Assessment/Plan 1. Hematuria and dysuria suggests UTI, ? prostatitis 2. HTN 3. Hypercholesterolemia 4. Presence of ICD PLAN: 1. Current echocardiography was reported normal LV systolic function with no mention of apical thrombus, thus, not clear whether to continue with anticoagulation with Warfarin at this time. Will need to obtain prior studies from his drink waiter and to further discuss this. 2. Continue Metoprolol ER and Ramipril as tolerated. 3. Continue Atorvastatin 4. follow up 5. Empiric antibiotics coverage 6. Hydration Further plans are to follow Isaak Lerma MD
--- NOTE | 2018-12-26 14:30 | PN ---
Progress Note, Physician History of Present Illness: REPORTS LESS SCROTAL PAIN NO C/O DYSURIA/HEMATURIA STILL FEBRILE - Current Medication List Current Medications: Active Medications Acetaminophen (Tylenol -) 650 mg PO Q6H PRN PRN Reason: FEVER Last Admin: 12/26/18 14:10 Dose: 650 mg Atorvastatin Calcium (Lipitor -) 40 mg PO HS MURALI Last Admin: 12/25/18 21:49 Dose: 40 mg Sodium Chloride (Normal Saline -) 1,000 mls @ 100 mls/hr IV ASDIR MURALI Last Admin: 12/26/18 12:47 Dose: Not Given Meropenem 1 gm/ Dextrose 100 mls @ 200 mls/hr IVPB Q8H-IV MURALI Last Admin: 12/26/18 10:28 Dose: 200 mls/hr Potassium Phos/Sodium Phos (Phos-Nak Packet -) 1 packet PO Q6H [facility] Stop: 12/26/18 16:16 Last Admin: 12/26/18 10:28 Dose: 1 packet Tamsulosin HCl (Flomax -) 0.4 mg PO DAILY@0830 [facility] Last Admin: 12/26/18 10:28 Dose: 0.4 mg - Objective Vital Signs: Vital Signs Temperature 99.5 F 12/26/18 05:58 Pulse Rate 96 H 12/26/18 05:58 Respiratory Rate 16 12/26/18 05:58 Blood Pressure 95/61 12/26/18 05:58 O2 Sat by Pulse Oximetry (%) 98 12/25/18 21:00 Constitutional: Yes: No Distress Cardiovascular: Yes: Regular Rate and Rhythm, S1, S2 Respiratory: Yes: CTA Bilaterally Gastrointestinal: Yes: Normal Bowel Sounds, Soft. No: Tenderness Edema: No Labs: CBC, BMP 12/26/18 08:15 12/26/18 08:15 INR, PTT INR 1.69 (0.83-1.09) H 12/26/18 08:15 Assessment/Plan GRAM NEGATIVE BACTEREMIA/ SEPSIS SECONDARY TO SOURCE UTI ? EPIDIDYMITIS /PROSTATITIS AWAIT C/S CONTINUE MEROPENEM
[2018-12-26] MEDS: WARFARIN NA 7.5 MG TABLET (FP) PO SCH (17:46)
--- NOTE | 2018-12-26 18:18 | PN ---
Progres Note Chief Complaint: pt feels better, less scrotal pain, no further bloody urethral disch - Objective Vital Signs: Vital Signs Temperature 100.7 F H 12/26/18 15:00 Pulse Rate 114 H 12/26/18 15:00 Respiratory Rate 18 12/26/18 15:00 Blood Pressure 124/71 12/26/18 15:00 O2 Sat by Pulse Oximetry (%) 98 12/26/18 09:00 Constitutional: Yes: Well Nourished, No Distress, Calm Gastrointestinal: Yes: WNL, Normal Bowel Sounds Genitourinary: Yes: WNL Kidneys: Yes: WNL Pelvis: Yes: WNL Testicles: Yes: WNL Scrotum: Yes: WNL Penis: Yes: WNL Prostate Exam: Yes: Swollen Labs/Additional Data: CBC, BMP 12/26/18 08:15 12/26/18 08:15 INR, PTT INR 1.69 (0.83-1.09) H 12/26/18 08:15 Problem List - Problems (1) Hematuria Code(s): R31.9 - HEMATURIA, UNSPECIFIED (2) Prostatitis Code(s): N41.9 - INFLAMMATORY DISEASE OF PROSTATE, UNSPECIFIED (3) UTI (urinary tract infection) Assessment/Plan: cont iv abxs Code(s): N39.0 - URINARY TRACT INFECTION, SITE NOT SPECIFIED (4) Urethritis, nonspecific Code(s): N34.1 - NONSPECIFIC URETHRITIS (5) Renal calculus Code(s): N20.0 - CALCULUS OF KIDNEY (6) BPH loc w urin obs/LUTS Code(s): N40.1 - BENIGN PROSTATIC HYPERPLASIA WITH LOWER URINARY TRACT SYMP
--- NOTE | 2018-12-26 18:23 | PN ---
Teaching Attending Note Name of Resident: Star Bolden ATTENDING PHYSICIAN STATEMENT I saw and evaluated the patient. I reviewed the resident's note and discussed the case with the resident. I agree with the resident's findings and plan as documented. SUBJECTIVE: Improvement in L testicular pain/tenderness. Fever +. No nausea/ vomiting. OBJECTIVE: Febrile. Tmax 102.7 Last Vital Signs Temp Pulse Resp BP Pulse Ox 100.7 F H 114 H 18 124/71 98 12/26/18 15:00 12/26/18 15:00 12/26/18 15:00 12/26/18 15:00 12/26/18 09:00 Head - Atraumatic, Normocephalic. Heart - S1, S2, RRR Lungs -clear to auscultation Abdomen - soft, non-tender. Bowel sounds normal. Extremities - no edema, no calf tenderness. - L testicles less swollen/tender + Laboratory Results - last 24 hr 12/26/18 12/26/18 12/26/18 08:15 08:15 08:15 WBC 14.2 H RBC 4.54 Hgb 13.6 Hct 40.6 MCV 89.4 MCH 29.9 MCHC 33.4 RDW 13.6 Plt Count 191 MPV 8.0 PT with INR 20.00 H INR 1.69 H Sodium 138 Potassium 3.7 Chloride 109 H Carbon Dioxide 23 Anion Gap 7 L BUN 15.0 Creatinine 1.3 Est GFR (CKD-EPI)AfAm 66.83 Est GFR (CKD-EPI)NonAf 57.66 Random Glucose 92 Calcium 8.0 L Phosphorus 1.6 L Magnesium 2.1 Current Medications Generic Name Dose Route Start Last Admin Trade Name Freq PRN Reason Stop Dose Admin Acetaminophen 650 mg 12/25/18 15:13 12/26/18 14:10 Tylenol - PO 650 mg Q6H PRN Administration FEVER Atorvastatin Calcium 40 mg 12/25/18 22:00 12/25/18 21:49 Lipitor - PO 40 mg HS MURALI Administration Sodium Chloride 1,000 mls @ 100 mls/hr 12/25/18 03:45 12/26/18 12:47 Normal Saline - IV Not Given ASDIR MURALI Meropenem 1 gm/ Dextrose 100 mls @ 200 mls/hr 12/25/18 13:15 12/26/18 17:23 IVPB 200 mls/hr Q8H-IV MURALI Administration Tamsulosin HCl 0.4 mg 12/25/18 08:30 12/26/18 10:28 Flomax - PO 0.4 mg DAILY@0830 MURALI Administration Warfarin Sodium 7.5 mg 12/26/18 18:00 12/26/18 17:46 Coumadin - PO 7.5 mg DAILY@1800 MURALI Administration Home Medications Medication Instructions Recorded Atorvastatin Ca [Lipitor] 40 mg PO HS 12/25/18 Metoprolol Succinate [Toprol Xl] 25 mg PO AM 12/25/18 Metoprolol Succinate [Toprol Xl] 100 mg PO DAILY 12/25/18 Ramipril [Altace] 5 mg PO AM 12/25/18 Warfarin Sodium [Coumadin] 7.5 mg PO DAILY 12/25/18 ASSESSMENT/PLAN: 63 year old male with history of HTN, HLD, s/p AICD (? reason), BPH, who presented to the ED with fever, dysuria, hematuria. 1. Sepsis secondary to UTI/acute epididymitis/protatitis with EColi Bacteremia Urine/Blood Cx positive for EColi. Continue Meropenem as per ID GN/CH swab pending Scrotal US shows right scrotal cyst likely spermatocele, large left varicocele Urology following. 2. Gross hematuria - resolved. Renal/bladder US shows normal kidneys, 12 mm left kidney stone, markedly enlarged prostate with moderate PVR Coumadin resumed Outpatient follow up. 3. Non-obstructing left nephrolithiasis - follow up. 4. BPH - Continue Flomax 5. HTN - Continue Toprol XL, Ramipril. 6. Hyperlipidemia - Continue Lipitor 7. History of AICD/on Coumadin - reason unclear. Will attempt to get more information/prior records. 8. Hypophosphatemia - repleted. 9. MADDY sec to Sepsis - resolved with IV hydration. No obstruction on renal imaging. DVT Px - on Coumadin.
--- NOTE | 2018-12-26 20:05 | PN ---
Physical Exam: SUBJECTIVE: Patient seen and examined NAEON. Endorses improvement in testicular pain. Voiding w/o issues. Denies blood/clots in urine. No BMs OBJECTIVE: Vital Signs Period Temp Pulse Resp BP Sys/Persaud Pulse Ox Last 24 Hr 98.5 F-102.7 F 94-114 16-20 95-130/61-77 98-98 GENERAL: The patient is awake, alert, in no acute distress. HEAD: NC/AT EYES: sclera anicteric, conjunctiva clear. ENT: Ears normal, nares patent, moist mucous membranes. NECK: Trachea midline, full range of motion, supple. LUNGS: CTA b/l, no wheezes, no crackles, no accessory muscle use. HEART: Regular rate and rhythm, S1, S2 without murmur, rub or gallop. ABDOMEN: Soft, nontender, nondistended, no guarding, no rebound, no masses. GROIN: decreased tenderness to SRUTHI of prostate. Moderate TTP of Left epipdymitis , no drainage of meatus EXTREMITIES: 2+ pulses, warm, well-perfused, no edema. NEUROLOGICAL: Normal speech PSYCH: Normal mood, normal affect. SKIN: Warm, dry, normal turgor, no rashes or lesions noted Laboratory Results - last 24 hr 12/26/18 12/26/18 12/26/18 08:15 08:15 08:15 WBC 14.2 H RBC 4.54 Hgb 13.6 Hct 40.6 MCV 89.4 MCH 29.9 MCHC 33.4 RDW 13.6 Plt Count 191 MPV 8.0 PT with INR 20.00 H INR 1.69 H Sodium 138 Potassium 3.7 Chloride 109 H Carbon Dioxide 23 Anion Gap 7 L BUN 15.0 Creatinine 1.3 Est GFR (CKD-EPI)AfAm 66.83 Est GFR (CKD-EPI)NonAf 57.66 Random Glucose 92 Calcium 8.0 L Phosphorus 1.6 L Magnesium 2.1 Active Medications Generic Name Dose Route Start Last Admin Trade Name Freq PRN Reason Stop Dose Admin Acetaminophen 650 mg 12/25/18 15:13 12/26/18 14:10 Tylenol - PO 650 mg Q6H PRN Administration FEVER Atorvastatin Calcium 40 mg 12/25/18 22:00 12/25/18 21:49 Lipitor - PO 40 mg HS MURALI Administration Sodium Chloride 1,000 mls @ 100 mls/hr 12/25/18 03:45 12/26/18 12:47 Normal Saline - IV Not Given ASDIR MURALI Meropenem 1 gm/ Dextrose 100 mls @ 200 mls/hr 12/25/18 13:15 12/26/18 17:23 IVPB 200 mls/hr Q8H-IV MURALI Administration Tamsulosin HCl 0.4 mg 12/25/18 08:30 12/26/18 10:28 Flomax - PO 0.4 mg DAILY@0830 MURALI Administration Warfarin Sodium 7.5 mg 12/26/18 18:00 12/26/18 17:46 Coumadin - PO 7.5 mg DAILY@1800 MURALI Administration ASSESSMENT/PLAN: 63 y.o. 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 #Sepsis 2/2 acute complicated UTI/ prostatitis > Renal/bladder U/S: Left renal pelvis stone 12mm, b/l renal cysts, enlarged prostate > Scrotal U/S: Right scrotal cyst(possible spermatocele), Left-sided varicocele , no torsion > INR 2.7 -warfarin(home) --held due to possible Uro --restarted as Uro has not made plans -Given 5mg PO vitamin K --for possible Uro procedure -C/w rocephin 1g daily --dc'd -ID consulted --meopenem -Urology consulted- Dr. Delgado --no comment on plan for procedure --recs pending -Flomax daily #HFrEF w/ AICD and coumadin(hx of cardiac thrombus in 2013) > EKG: ventricle paced rhythm, QTc 508 > Echo(12/26/18): tachy, normal LV size/thickness/function, normal RV size/funct -cardio consult --recommend obtaining studies in order to discuss need to continue warfarin -warfarin --restarted for now as Uro has no plans for procedure #HTN -C/w home meds-- ramipril, metoprolol #HLD -F/u w/ pharmacy for med list #FEN -IVF NS @ 100mL/hr -Trend lytes -Na controlled diet #DVT PPX -SCDs #Dispo -Med surg Visit type - Emergency Visit Emergency Visit: No - New Patient This patient is new to me today: No - Critical Care Critical Care patient: No ATTENDING PHYSICIAN STATEMENT I saw and evaluated the patient. I reviewed the resident's note and discussed the case with the resident. I agree with the resident's findings and plan as documented. SUBJECTIVE: OBJECTIVE: ASSESSMENT AND PLAN:
[2018-12-26] MEDS: ATORVASTATIN CA 40 MG TABLET (FP) PO SCH (21:57)
[2018-12-27] MEDS ORDERED: MEROPENEM 1 GM VIAL (RESTRICTED TO ID) IVPB ONE ×2 (01:26→08:59)
[2018-12-27] MEDS ORDERED: DEXTROSE 5%-WATER 100 ML IVPB ONE ×2 (01:27→08:59)
[2018-12-27] MEDS: MEROPENEM 1 GM in DEXTROSE 5%-WATER 100 ML IVPB SCH ×2 (01:35→09:41)
[2018-12-27 07:46] LABS: HEMATOCRIT 38.7 % (35.4-49); HEMOGLOBIN 13.2 GM/dL (11.7-16.9); MCH 30.1 pg (25.7-33.7); MCHC 34.2 g/dl (32.0-35.9); MEAN CELL VOLUME 88.1 fl (80-96); MEAN PLT VOLUME 7.9 fl (7.5-11.1); PLATELET COUNT 200 K/MM3 (134-434); RBC 4.39 M/mm3 (4.00-5.60); RDW 13.4 % (11.9-15.9); WHITE BLOOD COUNT 9.8 K/mm3 (4.0-10.0)
[2018-12-27 08:09] LABS: INR 1.34 (0.83-1.09); PROTHROMBIN TIME (PATIENT) 15.9 SEC (9.7-13.0)
[2018-12-27 08:23] LABS: BLOOD UREA NITROGEN 12.7 mg/dL (7-18); CALCIUM 7.9 mg/dL (8.5-10.1); CREATININE 1.3 mg/dL (0.55-1.3); MAGNESIUM 2.2 mg/dL (1.8-2.4); PHOSPHOROUS 1.8 mg/dL (2.5-4.9); POTASSIUM 3.7 mmol/L (3.5-5.1)
[2018-12-27] MEDS: SODIUM CHLORIDE 1,000 ML IV SCH ×2 (09:41→21:54)
[2018-12-27] MEDS: TAMSULOSIN HCL 0.4 MG CAP PO SCH (09:41)
[2018-12-27] MEDS ORDERED: POTASSIUM PHOSPHATE 30 MM in SODIUM CHLORIDE 500 ML IVPB ONE (10:00)
--- NOTE | 2018-12-27 12:03 | PN ---
Progress Note, Physician History of Present Illness: TODAY WITH C/O PAINLESS PENILE SHAFT SWELLING NO C/O SCROTAL PAIN NO C/O DYSURIA/HEMATURIA LOW GRADE TEMP BC, URINE C/S E COLI - Current Medication List Current Medications: Active Medications Acetaminophen (Tylenol -) 650 mg PO Q6H PRN PRN Reason: FEVER Last Admin: 12/26/18 14:10 Dose: 650 mg Atorvastatin Calcium (Lipitor -) 40 mg PO HS [facility] Last Admin: 12/26/18 21:57 Dose: 40 mg Sodium Chloride (Normal Saline -) 1,000 mls @ 100 mls/hr IV ASDIR MURALI Last Admin: 12/27/18 09:41 Dose: Not Given Meropenem 1 gm/ Dextrose 100 mls @ 200 mls/hr IVPB Q8H-IV [facility] Last Admin: 12/27/18 09:41 Dose: 200 mls/hr Potassium Phosphate 30 mm/ (Sodium Chloride) 510 mls @ 63.75 mls/hr IVPB ONCE ONE Stop: 12/27/18 17:59 Last Admin: 12/27/18 11:12 Dose: 63.75 mls/hr Tamsulosin HCl (Flomax -) 0.4 mg PO DAILY@0830 [facility] Last Admin: 12/27/18 09:41 Dose: 0.4 mg Warfarin Sodium (Coumadin -) 7.5 mg PO DAILY@1800 [facility] Last Admin: 12/26/18 17:46 Dose: 7.5 mg - Objective Vital Signs: Vital Signs Temperature 98.8 F 12/27/18 10:00 Pulse Rate 112 H 12/27/18 10:00 Respiratory Rate 118 H 12/27/18 10:00 Blood Pressure 125/85 12/27/18 10:00 O2 Sat by Pulse Oximetry (%) 98 12/26/18 21:00 Constitutional: Yes: No Distress Cardiovascular: Yes: Regular Rate and Rhythm, S1, S2 Respiratory: Yes: CTA Bilaterally Genitourinary: Yes: Other (NO EPIDIDYMAL TENDERNESS) Labs: CBC, BMP 12/27/18 07:20 12/27/18 07:20 INR, PTT INR 1.34 (0.83-1.09) H 12/27/18 07:20 Assessment/Plan GRAM NEGATIVE BACTEREMIA/ SEPSIS SECONDARY TO SOURCE UTI ? EPIDIDYMITIS /PROSTATITIS SUBSTITUTE CEFAZOLIN 2GM Q8H UROLOGY F/U
--- NOTE | 2018-12-27 14:23 | PN ---
Progress Note, Physician Chief Complaint: Not in distress History of Present Illness: Patient was seen and examined. Awake and alert. Chart was reviewed Denies chest pain, SOB or palpitations - Current Medication List Current Medications: Active Medications Acetaminophen (Tylenol -) 650 mg PO Q6H PRN PRN Reason: FEVER Last Admin: 12/26/18 14:10 Dose: 650 mg Atorvastatin Calcium (Lipitor -) 40 mg PO HS [facility] Last Admin: 12/26/18 21:57 Dose: 40 mg Sodium Chloride (Normal Saline -) 1,000 mls @ 100 mls/hr IV ASDIR [facility] Last Admin: 12/27/18 09:41 Dose: Not Given Potassium Phosphate 30 mm/ (Sodium Chloride) 510 mls @ 63.75 mls/hr IVPB ONCE ONE Stop: 12/27/18 17:59 Last Admin: 12/27/18 11:12 Dose: 63.75 mls/hr Cefazolin Sodium/Dextrose (Ancef 2 Gm Premixed Ivpb -) 2 gm in 50 mls @ 100 mls /hr IVPB Q8H-IV MURALI Tamsulosin HCl (Flomax -) 0.4 mg PO DAILY@0830 [facility] Last Admin: 12/27/18 09:41 Dose: 0.4 mg Warfarin Sodium (Coumadin -) 7.5 mg PO DAILY@1800 [facility] Last Admin: 12/26/18 17:46 Dose: 7.5 mg - Objective Vital Signs: Vital Signs Temperature 98.8 F 12/27/18 10:00 Pulse Rate 112 H 12/27/18 10:00 Respiratory Rate 118 H 12/27/18 10:00 Blood Pressure 125/85 12/27/18 10:00 O2 Sat by Pulse Oximetry (%) 98 12/26/18 21:00 Eyes: Yes: PERRL HENT: Yes: Atraumatic Neck: Yes: Supple Cardiovascular: Yes: Regular Rate and Rhythm, Tachycardia, S1, S2 Respiratory: Yes: CTA Bilaterally Gastrointestinal: Yes: Normal Bowel Sounds, Soft. No: Tenderness Edema: No Labs: CBC, BMP 12/27/18 07:20 12/27/18 07:20 INR, PTT INR 1.34 (0.83-1.09) H 12/27/18 07:20 Problem List - Problems (1) HTN (hypertension) Code(s): I10 - ESSENTIAL (PRIMARY) HYPERTENSION (2) Hypercholesterolemia Code(s): E78.00 - PURE HYPERCHOLESTEROLEMIA, UNSPECIFIED (3) Presence of implantable cardioverter-defibrillator (ICD) Code(s): Z95.810 - PRESENCE OF AUTOMATIC (IMPLANTABLE) CARDIAC DEFIBRILLATOR (4) BPH loc w urin obs/LUTS Code(s): N40.1 - BENIGN PROSTATIC HYPERPLASIA WITH LOWER URINARY TRACT SYMP (5) Hematuria Code(s): R31.9 - HEMATURIA, UNSPECIFIED (6) Prostatitis Code(s): N41.9 - INFLAMMATORY DISEASE OF PROSTATE, UNSPECIFIED (7) UTI (urinary tract infection) Code(s): N39.0 - URINARY TRACT INFECTION, SITE NOT SPECIFIED Assessment/Plan 1. Hematuria and dysuria suggests UTI, ? prostatitis 2. HTN 3. Hypercholesterolemia 4. Presence of ICD (PROJECTOR BOOTH OPERATOR) 5. History of PAF PLAN: 1. Spoke with Dr. Luz Villavicencio ([facility]), his wine maker who states that his last echocardiography revealed LVEF of 45%. Currently LVEF appears to have improved as stated on previous note, but he was noted to have PAF during ICD interrogation in her office. He should resume Coumadin and keep INR btw 2-3. Other option is to use DOAC, but will defer it to her. 2. Continue Metoprolol ER and Ramipril as tolerated. 3. Continue Atorvastatin 4. follow up noted 5. Empiric antibiotics coverage 6. Hydration Further plans are to follow Isaak Lerma MD
--- NOTE | 2018-12-27 15:12 | EKG ---
Test Reason : Blood Pressure : / mmHG Vent. Rate : 110 BPM Atrial Rate : 110 BPM P-R Int : 154 ms QRS Dur : 156 ms QT Int : 388 ms P-R-T Axes : 055 -86 035 degrees QTc Int : 525 ms Atrial-sensed ventricular-paced rhythm Biventricular pacemaker detected ABNORMAL ECG WHEN COMPARED WITH ECG OF 25-DEC-2018 04:31, VENT. RATE HAS INCREASED BY 20 BPM Confirmed by RAYMOND MCCALL MD ([id number]) on 12/27/2018 3:12:06 PM Referred By: ALISSA VALENTIN DR Confirmed By:RAYMOND MCCALL MD
--- NOTE | 2018-12-27 17:28 | PN ---
Physical Exam: SUBJECTIVE: Patient seen and examined NAEON. Denies dysuria, no blood to meatus OBJECTIVE: Vital Signs Period Temp Pulse Resp BP Sys/Persaud Pulse Ox Last 24 Hr 98.8 F-99.7 F 98-112 20-118 104-147/66-85 98 GENERAL: The patient is awake, alert, in no acute distress. HEAD: NC/AT EYES: sclera anicteric, conjunctiva clear. ENT: Ears normal, nares patent, moist mucous membranes. NECK: Trachea midline, full range of motion, supple. LUNGS: CTA b/l, no wheezes, no crackles, no accessory muscle use. HEART: Regular rate and rhythm, S1, S2 without murmur, rub or gallop. ABDOMEN: Soft, nontender, nondistended, no guarding, no rebound, no masses. GROIN: Very mild TTP of Left epipdymitis, no drainage of meatus EXTREMITIES: 2+ pulses, warm, well-perfused, no edema. NEUROLOGICAL: Normal speech PSYCH: Normal mood, normal affect. SKIN: Warm, dry, normal turgor, no rashes or lesions noted Laboratory Results - last 24 hr 12/27/18 12/27/18 12/27/18 07:20 07:20 07:20 WBC 9.8 RBC 4.39 Hgb 13.2 Hct 38.7 MCV 88.1 MCH 30.1 MCHC 34.2 RDW 13.4 Plt Count 200 MPV 7.9 PT with INR 15.90 H INR 1.34 H Sodium 140 Potassium 3.7 Chloride 110 H Carbon Dioxide 22 Anion Gap 8 BUN 12.7 Creatinine 1.3 Est GFR (CKD-EPI)AfAm 66.83 Est GFR (CKD-EPI)NonAf 57.66 Random Glucose 101 Calcium 7.9 L Phosphorus 1.8 L Magnesium 2.2 Active Medications Generic Name Dose Route Start Last Admin Trade Name Freq PRN Reason Stop Dose Admin Acetaminophen 650 mg 12/25/18 15:13 12/26/18 14:10 Tylenol - PO 650 mg Q6H PRN Administration FEVER Atorvastatin Calcium 40 mg 12/25/18 22:00 12/26/18 21:57 Lipitor - PO 40 mg HS MURALI Administration Sodium Chloride 1,000 mls @ 100 mls/hr 12/25/18 03:45 12/27/18 09:41 Normal Saline - IV Not Given ASDIR [facility] Potassium Phosphate 30 mm/ 510 mls @ 63.75 mls/hr 12/27/18 10:00 12/27/18 11: 12 Sodium Chloride IVPB 12/27/18 17:59 63.75 mls/hr ONCE ONE Administration 30 MM/8 HR Cefazolin Sodium/Dextrose 2 gm in 50 mls @ 100 mls/hr 12/27/18 18:00 Ancef 2 Gm Premixed Ivpb - IVPB Q8H-IV MURALI Tamsulosin HCl 0.4 mg 12/25/18 08:30 12/27/18 09:41 Flomax - PO 0.4 mg DAILY@0830 MURALI Administration Warfarin Sodium 7.5 mg 12/26/18 18:00 12/26/18 17:46 Coumadin - PO 7.5 mg DAILY@1800 MURALI Administration ASSESSMENT/PLAN: 63 y.o. 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 #Sepsis 2/2 acute complicated UTI/ prostatitis > Renal/bladder U/S: Left renal pelvis stone 12mm, b/l renal cysts, enlarged prostate > Scrotal U/S: Right scrotal cyst(possible spermatocele), Left-sided varicocele , no torsion > INR 2.7 -warfarin(home) --held due to possible Uro --restarted as Uro has not made plans -Given 5mg PO vitamin K --for possible Uro procedure -C/w rocephin 1g daily --dc'd -ID consulted --meropenem --dc'd --Cefazolin 2GM Q8H --day 3 -Urology consulted- Dr. Delgado --no comment on plan for procedure --recs pending -Flomax daily #HFrEF w/ AICD and coumadin(hx of cardiac thrombus in 2013) > EKG: ventricle paced rhythm, QTc 508 > Echo(12/26/18): tachy, normal LV size/thickness/function, normal RV size/funct -cardio consult -- Dr. Luz Villavicencio ([facility]), his cyber transport systems specialist who states that his last echocardiography revealed LVEF of 45% -warfarin --restarted for now as Uro has no plans for procedure #HTN -C/w home meds-- ramipril, metoprolol #HLD -F/u w/ pharmacy for med list #FEN -IVF NS @ 100mL/hr -Trend lytes -Na controlled diet #DVT PPX -SCDs #Dispo -Med surg Visit type - Emergency Visit Emergency Visit: No - New Patient This patient is new to me today: No - Critical Care Critical Care patient: No ATTENDING PHYSICIAN STATEMENT I saw and evaluated the patient. I reviewed the resident's note and discussed the case with the resident. I agree with the resident's findings and plan as documented. SUBJECTIVE: OBJECTIVE: ASSESSMENT AND PLAN:
[2018-12-27] MEDS: CEFAZOLIN 2 GM/D5W 2 GM/50 ML ML IVPB SCH (17:59)
--- NOTE | 2018-12-27 18:42 | PN ---
Teaching Attending Note Name of Resident: Star Bolden ATTENDING PHYSICIAN STATEMENT I saw and evaluated the patient. I reviewed the resident's note and discussed the case with the resident. I agree with the resident's findings and plan as documented. SUBJECTIVE: Improvement in L testicular pain/tenderness. Fever +. No nausea/ vomiting. No penile discharge. No further hematuria. OBJECTIVE: Febrile. Tmax 100.7. Hemodynamically Stable. Last Vital Signs Temp Pulse Resp BP Pulse Ox 99.3 F 98 H 20 147/70 98 12/27/18 14:02 12/27/18 14:02 12/27/18 14:02 12/27/18 14:02 12/26/18 21:00 Head - Atraumatic, Normocephalic. Heart - S1, S2, RRR Lungs - clear to auscultation Abdomen - soft, non-tender. Bowel sounds normal. Extremities - no edema, no calf tenderness. - L testicle no longer tender. Laboratory Results - last 24 hr 12/27/18 12/27/18 12/27/18 07:20 07:20 07:20 WBC 9.8 RBC 4.39 Hgb 13.2 Hct 38.7 MCV 88.1 MCH 30.1 MCHC 34.2 RDW 13.4 Plt Count 200 MPV 7.9 PT with INR 15.90 H INR 1.34 H Sodium 140 Potassium 3.7 Chloride 110 H Carbon Dioxide 22 Anion Gap 8 BUN 12.7 Creatinine 1.3 Est GFR (CKD-EPI)AfAm 66.83 Est GFR (CKD-EPI)NonAf 57.66 Random Glucose 101 Calcium 7.9 L Phosphorus 1.8 L Magnesium 2.2 Current Medications Generic Name Dose Route Start Last Admin Trade Name Freq PRN Reason Stop Dose Admin Acetaminophen 650 mg 12/25/18 15:13 12/26/18 14:10 Tylenol - PO 650 mg Q6H PRN Administration FEVER Atorvastatin Calcium 40 mg 12/25/18 22:00 12/26/18 21:57 Lipitor - PO 40 mg HS MURALI Administration Sodium Chloride 1,000 mls @ 100 mls/hr 12/25/18 03:45 12/27/18 09:41 Normal Saline - IV Not Given ASDIR MURALI Cefazolin Sodium/Dextrose 2 gm in 50 mls @ 100 mls/hr 12/27/18 18:00 17:59 Ancef 2 Gm Premixed Ivpb - IVPB 100 mls/hr Q8H-IV MURALI Administration Tamsulosin HCl 0.4 mg 12/25/18 08:30 12/27/18 09:41 Flomax - PO 0.4 mg DAILY@0830 MURALI Administration Warfarin Sodium 7.5 mg 12/26/18 18:00 12/26/18 17:46 Coumadin - PO 7.5 mg DAILY@1800 MURALI Administration Home Medications Medication Instructions Recorded Atorvastatin Ca [Lipitor] 40 mg PO HS 12/25/18 Metoprolol Succinate [Toprol Xl] 25 mg PO AM 12/25/18 Metoprolol Succinate [Toprol Xl] 100 mg PO DAILY 12/25/18 Ramipril [Altace] 5 mg PO AM 12/25/18 Warfarin Sodium [Coumadin] 7.5 mg PO DAILY 12/25/18 ASSESSMENT/PLAN: 63 year old male with history of HTN, HLD, s/p AICD (? reason), BPH, who presented to the ED with fever, dysuria, hematuria. 1. Sepsis secondary to UTI/acute epididymitis/protatitis with EColi Bacteremia Still febrile. Leukocytosis resolved. Urine/Blood Cx positive for EColi. Meropenem changed to Cefazolin as per ID GN/CH swab pending Scrotal US shows right scrotal cyst likely spermatocele, large left varicocele Urology following. 2. Gross hematuria - resolved. Renal/bladder US shows normal kidneys, 12 mm left kidney stone, markedly enlarged prostate with moderate PVR Coumadin resumed Outpatient follow up. 3. Non-obstructing left nephrolithiasis - follow up. 4. BPH - Continue Flomax 5. HTN - Continue Toprol XL, Ramipril. 6. Hyperlipidemia - Continue Lipitor 7. History of AICD - reason unclear. Will attempt to get more information/prior records. 8. Hypophosphatemia - recurrent, will replete. 9. MADDY sec to Sepsis - resolved with IV hydration. No obstruction on renal imaging. 10. Hx PAF and Chronic Systolic CHF - on Coumadin. EF now normal. DVT Px - on Coumadin.
[2018-12-27] MEDS: WARFARIN NA 7.5 MG TABLET (FP) PO SCH (19:05)
[2018-12-27] MEDS: ATORVASTATIN CA 40 MG TABLET (FP) PO SCH (21:54)
[2018-12-28] MEDS: CEFAZOLIN 2 GM/D5W 2 GM/50 ML ML IVPB SCH ×2 (01:23→09:48)
[2018-12-28 08:01] LABS: INR 1.37 (0.83-1.09); PROTHROMBIN TIME (PATIENT) 16.2 SEC (9.7-13.0)
[2018-12-28 08:54] LABS: BLOOD UREA NITROGEN 12.4 mg/dL (7-18); CALCIUM 8.3 mg/dL (8.5-10.1); CREATININE 1.2 mg/dL (0.55-1.3); MAGNESIUM 2.2 mg/dL (1.8-2.4); PHOSPHOROUS 2.6 mg/dL (2.5-4.9); POTASSIUM 3.7 mmol/L (3.5-5.1)
[2018-12-28] MEDS ORDERED: POTASSIUM CHLORIDE ORAL LIQUID 20 MEQ/15 ML PO ONE (09:11)
[2018-12-28] MEDS: TAMSULOSIN HCL 0.4 MG CAP PO SCH (09:48)
[2018-12-28] MEDS: SODIUM CHLORIDE 1,000 ML IV SCH (09:54)
--- NOTE | 2018-12-28 15:06 | PN ---
Progress Note, Physician History of Present Illness: PENILE SHAFT SWELLING RESOLVED NO C/O SCROTAL PAIN NO C/O DYSURIA/HEMATURIA AFEBRILE WBC WNL BC, URINE C/S E COLI - Current Medication List Current Medications: Active Medications Acetaminophen (Tylenol -) 650 mg PO Q6H PRN PRN Reason: FEVER Last Admin: 12/26/18 14:10 Dose: 650 mg Atorvastatin Calcium (Lipitor -) 40 mg PO HS [facility] Last Admin: 12/27/18 21:54 Dose: 40 mg Sodium Chloride (Normal Saline -) 1,000 mls @ 100 mls/hr IV ASDIR [facility]URALI Last Admin: 12/28/18 09:54 Dose: 100 mls/hr Ceftriaxone Sodium (Ceftriaxone 2 Gm-D5w Bag) 2 gm in 50 mls @ 100 mls/hr IVPB DAILY [facility]; Protocol Tamsulosin HCl (Flomax -) 0.4 mg PO DAILY@0830 [facility] Last Admin: 12/28/18 09:48 Dose: 0.4 mg Warfarin Sodium (Coumadin -) 7.5 mg PO DAILY@1800 [facility] Last Admin: 12/27/18 19:05 Dose: 7.5 mg - Objective Vital Signs: Vital Signs Temperature 98.6 F 12/28/18 10:00 Pulse Rate 80 12/28/18 10:00 Respiratory Rate 18 12/28/18 10:00 Blood Pressure 133/93 12/28/18 10:00 O2 Sat by Pulse Oximetry (%) 98 12/28/18 09:00 Constitutional: Yes: No Distress Eyes: Yes: Conjunctiva Clear Cardiovascular: Yes: Regular Rate and Rhythm, S1, S2 Respiratory: Yes: CTA Bilaterally Gastrointestinal: Yes: Normal Bowel Sounds, Soft. No: Tenderness Genitourinary: Yes: Other (NO SCROTAL SWELLING; NO EPIDIDYMAL TENDERNESS) Edema: No Labs: CBC, BMP 12/27/18 07:20 12/28/18 06:40 INR, PTT INR 1.37 (0.83-1.09) H 12/28/18 06:40 Assessment/Plan GRAM NEGATIVE BACTEREMIA/ SEPSIS SECONDARY TO SOURCE UTI ? EPIDIDYMITIS /PROSTATITIS SUBSTITUTE CEFTRIAXONE 2GM IVPB Q24H VIA PICC X 10D OUTPATIENT UROLOGY F/U
--- NOTE | 2018-12-28 15:40 | PN ---
Physical Exam: SUBJECTIVE: Patient seen and examined NAEON Denies pain with urination. Scrotal pain improved from day prior. Denies F/C OBJECTIVE: Vital Signs Period Temp Pulse Resp BP Sys/Persaud Pulse Ox Last 24 Hr 98.3 F-98.9 F 80-101 18-20 131-140/69-93 98 GENERAL: The patient is awake, alert, in no acute distress. HEAD: NC/AT EYES: sclera anicteric, conjunctiva clear. ENT: Ears normal, nares patent, moist mucous membranes. NECK: Trachea midline, full range of motion, supple. LUNGS: CTA b/l, no wheezes, no crackles, no accessory muscle use. HEART: Regular rate and rhythm, S1, S2 without murmur, rub or gallop. ABDOMEN: Soft, nontender, nondistended, no guarding, no rebound, no masses. GROIN: Very mild TTP of Left epipdymitis, no drainage of meatus EXTREMITIES: 2+ pulses, warm, well-perfused, no edema. NEUROLOGICAL: Normal speech PSYCH: Normal mood, normal affect. SKIN: Warm, dry, normal turgor, no rashes or lesions noted Laboratory Results - last 24 hr 12/28/18 12/28/18 06:40 06:40 PT with INR 16.20 H INR 1.37 H Sodium 140 Potassium 3.7 Chloride 110 H Carbon Dioxide 22 Anion Gap 8 BUN 12.4 Creatinine 1.2 Est GFR (CKD-EPI)AfAm 73.62 Est GFR (CKD-EPI)NonAf 63.52 Random Glucose 100 Calcium 8.3 L Phosphorus 2.6 Magnesium 2.2 Active Medications Generic Name Dose Route Start Last Admin Trade Name Freq PRN Reason Stop Dose Admin Acetaminophen 650 mg 12/25/18 15:13 12/26/18 14:10 Tylenol - PO 650 mg Q6H PRN Administration FEVER Atorvastatin Calcium 40 mg 12/25/18 22:00 12/27/18 21:54 Lipitor - PO 40 mg HS MURALI Administration Sodium Chloride 1,000 mls @ 100 mls/hr 12/25/18 03:45 12/28/18 09:54 Normal Saline - IV 100 mls/hr ASDIR MURALI Administration Ceftriaxone Sodium 2 gm/ 100 mls @ 200 mls/hr 12/28/18 15:00 Dextrose IVPB DAILY MURALI Protocol Tamsulosin HCl 0.4 mg 10/21/19 08:30 12/28/18 09:48 Flomax - PO 0.4 mg DAILY@0830 MURALI Administration Warfarin Sodium 7.5 mg 12/26/18 18:00 12/27/18 19:05 Coumadin - PO 7.5 mg DAILY@1800 MURALI Administration ASSESSMENT/PLAN: 63 y.o. 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 #Sepsis 2/2 acute complicated UTI/ prostatitis > Renal/bladder U/S: Left renal pelvis stone 12mm, b/l renal cysts, enlarged prostate > Scrotal U/S: Right scrotal cyst(possible spermatocele), Left-sided varicocele , no torsion > INR 2.7 -warfarin(home) --held due to possible Uro --restarted as Uro has not made plans -Given 5mg PO vitamin K --for possible Uro procedure -C/w rocephin 1g daily --dc'd -ID consulted --Meropenem --dc'd --Cefazolin 2GM Q8H --day 3 --dc'd --Ceftriaxone 2g QD, for 10d --day 4 -Urology consulted- Dr. Delgado --no comment on plan for procedure --recs pending -Flomax daily #HFrEF w/ AICD and coumadin(hx of cardiac thrombus in 2013) > EKG: ventricle paced rhythm, QTc 508 > Echo(12/26/18): tachy, normal LV size/thickness/function, normal RV size/funct -cardio consult -- Dr. 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 I reviewed the resident's note and discussed the case with the resident. I agree with the resident's findings and plan as documented. SUBJECTIVE: OBJECTIVE: ASSESSMENT AND PLAN:
--- NOTE | 2018-12-28 16:29 | DS ---
Physical Exam: SUBJECTIVE: Patient seen and examined NAEON Denies dysuria. Resolution of hematuria OBJECTIVE: Vital Signs Period Temp Pulse Resp BP Sys/Persaud Pulse Ox Last 24 Hr 98.3 F-98.9 F 80-101 18-20 127-140/69-93 98 PHYSICAL EXAM GENERAL: The patient is awake, alert, in no acute distress. HEAD: NC/AT EYES: sclera anicteric, conjunctiva clear. ENT: Ears normal, nares patent, moist mucous membranes. NECK: Trachea midline, full range of motion, supple. LUNGS: CTA b/l, no wheezes, no crackles, no accessory muscle use. HEART: Regular rate and rhythm, S1, S2 without murmur, rub or gallop. Left upper chest wall with palpable AICD, w/o TTP or erythema ABDOMEN: Soft, nontender, nondistended, no guarding, no rebound, no masses. GROIN: Very mild TTP of Left epipdymitis, no drainage of meatus. Increased nontender LAD of Right and Left groin EXTREMITIES: 2+ pulses, warm, well-perfused, no edema. NEUROLOGICAL: Normal speech PSYCH: Normal mood, normal affect. SKIN: Warm, dry, normal turgor, no rashes or lesions noted LABS Laboratory Results - last 24 hr 12/28/18 12/28/18 06:40 06:40 PT with INR 16.20 H INR 1.37 H Sodium 140 Potassium 3.7 Chloride 110 H Carbon Dioxide 22 Anion Gap 8 BUN 12.4 Creatinine 1.2 Est GFR (CKD-EPI)AfAm 73.62 Est GFR (CKD-EPI)NonAf 63.52 Random Glucose 100 Calcium 8.3 L Phosphorus 2.6 Magnesium 2.2 HOSPITAL COURSE: 63 y.o. 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 Found to be septic due to tachy, fever. INR 2.7 initially, but given Vit K to reverse warfarin for possible Uro procedure. Renal/bladder U/S showed Left renal pelvis stone 12mm, b /l renal cysts, enlarged prostate. Scrotal U/S showed Right scrotal cyst( possible spermatocele), Left-sided varicocele, no torsion. Uro did not offer any procedures. BCX and UCX resulting as trejo-sensitive Ecoli. Given Mereopenen initially then transistioned cefazolin, then ceftriaxone for 10d at home for total 14d. Cardio consulted for h/o HFrEF w/ AICD and questionable h/o of cardiac thrombus, pAF. Cardio recommended resuming warfarin after discussing with Dr. Luz Villavicencio ([facility]). Date of Admission:12/25/18 Date of Discharge: 12/28/18 Minutes to complete discharge: 40 Discharge Summary Problems reviewed: Yes Reason For Visit: URINARY TRACT INFECTION, HEMATURIA, PROSTATITIS Current Active Problems BPH loc w urin obs/LUTS (Acute) Epididymitis (Acute) HTN (hypertension) (Acute) Hematuria (Acute) Hypercholesterolemia (Acute) Presence of implantable cardioverter-defibrillator (ICD) (Acute) Prostatitis (Acute) Renal calculus (Acute) UTI (urinary tract infection) (Acute) Urethritis, nonspecific (Acute) Condition: Stable - Instructions Diet, Activity, Other Instructions: You were evaluated in the hospital for painful urination with a small amount of blood and testicular pain. Ultrasound imaging showed an enlarged prostate, multiple kidney cysts, a 12mm Left kidney stone. A urologist evaluated and did not recommend any procedure at this time. A purchasing intern evaluated and recommended restarting warfarin. Your infection improved after administration of antibiotics. NEW medications: - intravenous Ceftriaxone[ROCEPHIN] 2g IV Piggyback, every 24hs; for 10 days - continue your normal home medications Please follow-up with the physicians below: - PCP: to discuss your hospitalization. For follow-up bloodwork for your electrolytes. - Urologist(Dr Delgado): to discuss your left-sided kidney 12mm stone, enlarged prostate - Retail Sales Merchandiser(your own purchasing intern or Dr Isaak Lerma): to discuss the need to continue with your coumadin and/or discuss additional cardiac imaging as needed Additional Instructions: - diet: heart healthy diet(low surgar, low fat, high fiber) - activity: regular activity Please seek immediate medical evaluation or go to the Emergency Department if you experience: - inability to urinate, worsening penile/testicular pain, worsening pain with defecation - fever, chills Referrals: Solis Delgado MD [Staff Physician] - Isaak Lerma MD [Staff Physician] - Moise Luna [Primary Care Provider] - Disposition: HOME - Home Medications Comprehensive Discharge Medication List: Ambulatory Orders Atorvastatin Ca [Lipitor] 40 mg PO HS 12/25/18 Metoprolol Succinate [Toprol Xl] 25 mg PO AM 12/25/18 Metoprolol Succinate [Toprol Xl] 100 mg PO DAILY 12/25/18 Ramipril [Altace] 5 mg PO AM 12/25/18 Warfarin Sodium [Coumadin] 7.5 mg PO DAILY 12/25/18 Tamsulosin HCl [Flomax -] 0.4 mg PO DAILY@0830 #30 cap.er.24h 12/28/18 This patient is new to me today: No Emergency Visit: No Critical Care patient: No - Discharge Referral Referred to [facility] Med P.C[facility] No ATTENDING PHYSICIAN STATEMENT I saw and evaluated the patient. I reviewed the resident's note and discussed the case with the resident. I agree with the resident's findings and plan as documented. SUBJECTIVE: OBJECTIVE: ASSESSMENT AND PLAN:
[2018-12-28] MEDS ORDERED: DEXTROSE 5%-WATER 100 ML IVPB ONE (16:30)
[2018-12-28] MEDS ORDERED: PT OWN MED DRAWER 7, Y5N ONE (16:52)
[2018-12-28] MEDS: WARFARIN NA 7.5 MG TABLET (FP) PO SCH (17:22)
[2018-12-28] MEDS: CEFTRIAXONE 2 GM in DEXTROSE 5%-WATER 100 ML IVPB SCH (17:22)
--- NOTE | 2018-12-28 19:10 | PN ---
Teaching Attending Note Name of Resident: Star Bolden ATTENDING PHYSICIAN STATEMENT I saw and evaluated the patient. I reviewed the resident's note and discussed the case with the resident. I agree with the resident's findings and plan as documented. SUBJECTIVE: Improvement in L testicular pain/tenderness. Fever resolved. No nausea/vomiting. No penile discharge. No further hematuria. OBJECTIVE: Fever resolved. Hemodynamically Stable. Last Vital Signs Temp Pulse Resp BP Pulse Ox 98.4 F 100 H 20 127/89 98 12/28/18 14:00 12/28/18 14:00 12/28/18 14:00 12/28/18 14:00 12/28/18 09:00 Heart - S1, S2, RRR Lungs - clear to auscultation Abdomen - soft, non-tender. Bowel sounds normal. Extremities - no edema, no calf tenderness. - L testicle no longer tender. Laboratory Results - last 24 hr 12/28/18 12/28/18 06:40 06:40 PT with INR 16.20 H INR 1.37 H Sodium 140 Potassium 3.7 Chloride 110 H Carbon Dioxide 22 Anion Gap 8 BUN 12.4 Creatinine 1.2 Est GFR (CKD-EPI)AfAm 73.62 Est GFR (CKD-EPI)NonAf 63.52 Random Glucose 100 Calcium 8.3 L Phosphorus 2.6 Magnesium 2.2 Current Medications Generic Name Dose Route Start Last Admin Trade Name Freq PRN Reason Stop Dose Admin Acetaminophen 650 mg 12/25/18 15:13 12/26/18 14:10 Tylenol - PO 650 mg Q6H PRN Administration FEVER Atorvastatin Calcium 40 mg 12/25/18 22:00 12/27/18 21:54 Lipitor - PO 40 mg HS MURALI Administration Sodium Chloride 1,000 mls @ 100 mls/hr 12/25/18 03:45 12/28/18 09:54 Normal Saline - IV 100 mls/hr ASDIR MURALI Administration Ceftriaxone Sodium 2 gm/ 100 mls @ 200 mls/hr 12/28/18 15:00 12/28/18 17:22 Dextrose IVPB 200 mls/hr DAILY MURALI Administration Protocol Tamsulosin HCl 0.4 mg 12/25/18 08:30 12/28/18 09:48 Flomax - PO 0.4 mg DAILY@0830 MURALI Administration Warfarin Sodium 7.5 mg 12/26/18 18:00 12/28/18 17:22 Coumadin - PO 7.5 mg DAILY@1800 [facility] Administration Home Medications Medication Instructions Recorded Atorvastatin Ca [Lipitor] 40 mg PO HS 12/25/18 Metoprolol Succinate [Toprol Xl] 25 mg PO AM 12/25/18 Metoprolol Succinate [Toprol Xl] 100 mg PO DAILY 12/25/18 Ramipril [Altace] 5 mg PO AM 12/25/18 Warfarin Sodium [Coumadin] 7.5 mg PO DAILY 12/25/18 Tamsulosin HCl [Flomax -] 0.4 mg PO DAILY@0830 #30 cap.er.24h 12/28/18 ASSESSMENT/PLAN: 63 year old male with history of HTN, HLD, s/p AICD (? reason), BPH, who presented to the ED with fever, dysuria, hematuria. 1. Sepsis secondary to UTI/acute epididymitis/protatitis with EColi Bacteremia Still febrile. Leukocytosis resolved. Urine/Blood Cx positive for EColi. Meropenem changed to Ceftriaxone as per ID - 2g daily for 10 days GN/CH swab pending Scrotal US shows right scrotal cyst likely spermatocele, large left varicocele, evaluated by Urology. PICC line for home abx administration. 2. Gross hematuria - resolved. Renal/bladder US shows normal kidneys, 12 mm left kidney stone, markedly enlarged prostate with moderate PVR Coumadin resumed Outpatient follow up. 3. Non-obstructing left nephrolithiasis - follow up. 4. BPH - Continue Flomax 5. HTN - Continue Toprol XL, Ramipril. 6. Hyperlipidemia - Continue Lipitor 7. History of AICD - reason unclear. Will attempt to get more information/prior records. 8. Hypophosphatemia - recurrent, will replete. 9. MADDY sec to Sepsis - resolved with IV hydration. No obstruction on renal imaging. 10. Hx PAF and Chronic Systolic CHF - on Coumadin. EF now normal. Cardiology follow up with Dr. Luz Villavicencio at [facility]. DVT Px - on Coumadin.
[2018-12-28] MEDS: ATORVASTATIN CA 40 MG TABLET (FP) PO SCH (21:04)
[2018-12-29 08:00] LABS: BLOOD UREA NITROGEN 14.3 mg/dL (7-18); CALCIUM 8.7 mg/dL (8.5-10.1); CREATININE 1.3 mg/dL (0.55-1.3); MAGNESIUM 2.2 mg/dL (1.8-2.4); PHOSPHOROUS 3.1 mg/dL (2.5-4.9); POTASSIUM 4.2 mmol/L (3.5-5.1)
[2018-12-29] MEDS ORDERED: DEXTROSE 5%-WATER 100 ML IVPB ONE (08:46)
[2018-12-29] MEDS: TAMSULOSIN HCL 0.4 MG CAP PO SCH (09:42)
[2018-12-29] MEDS: CEFTRIAXONE 2 GM in DEXTROSE 5%-WATER 100 ML IVPB SCH (09:42)
[2018-12-29] MEDS: SODIUM CHLORIDE 1,000 ML IV SCH (09:47)
[2018-12-29 10:56] VITALS: BP 125/77; PULSE 89; TEMP 98
--- NOTE | 2018-12-29 12:57 | PN ---
Progress Note, Physician Chief Complaint: Not in distress History of Present Illness: Patient was seen and examined. Awake and alert. Chart was reviewed Denies chest pain, SOB or palpitations No more hematuria - Objective Vital Signs: Vital Signs Temperature 98 F 12/29/18 10:00 Pulse Rate 89 12/29/18 10:00 Respiratory Rate 18 12/29/18 10:00 Blood Pressure 125/77 12/29/18 10:00 O2 Sat by Pulse Oximetry (%) 99 12/29/18 09:00 Eyes: Yes: PERRL HENT: Yes: Atraumatic Neck: Yes: Supple Cardiovascular: Yes: Regular Rate and Rhythm, S1, S2 Respiratory: Yes: CTA Bilaterally Gastrointestinal: Yes: Normal Bowel Sounds, Soft. No: Tenderness Edema: No Labs: CBC, BMP 12/27/18 07:20 12/29/18 06:20 INR, PTT INR 1.37 (0.83-1.09) H 12/28/18 06:40 Problem List - Problems (1) HTN (hypertension) Code(s): I10 - ESSENTIAL (PRIMARY) HYPERTENSION Qualifiers: Hypertension type: essential hypertension Qualified Code(s): I10 - Essential (primary) hypertension (2) Hypercholesterolemia Code(s): E78.00 - PURE HYPERCHOLESTEROLEMIA, UNSPECIFIED (3) Presence of implantable cardioverter-defibrillator (ICD) Code(s): Z95.810 - PRESENCE OF AUTOMATIC (IMPLANTABLE) CARDIAC DEFIBRILLATOR (4) BPH loc w urin obs/LUTS Code(s): N40.1 - BENIGN PROSTATIC HYPERPLASIA WITH LOWER URINARY TRACT SYMP (5) Hematuria Code(s): R31.9 - HEMATURIA, UNSPECIFIED (6) Prostatitis Code(s): N41.9 - INFLAMMATORY DISEASE OF PROSTATE, UNSPECIFIED (7) UTI (urinary tract infection) Code(s): N39.0 - URINARY TRACT INFECTION, SITE NOT SPECIFIED Assessment/Plan 1. Hematuria and dysuria suggests UTI, ? prostatitis 2. HTN 3. Hypercholesterolemia 4. Presence of ICD (MEETING/EVENT PLANNER) 5. History of PAF PLAN: 1. Continue current medical therapy including Warfarin therapy. INR still subtherapeutic but should be followed as outpatient by his PMD or his target network analyst and to keep INR 2-3 2. Continue Metoprolol ER and Ramipril as tolerated. 3. Continue Atorvastatin Discharge planning Isaak Lerma MD
--- NOTE | 2018-12-29 15:39 | PN ---
Teaching Attending Note Name of Resident: Star Bolden ATTENDING PHYSICIAN STATEMENT I saw and evaluated the patient. I reviewed the resident's note and discussed the case with the resident. I agree with the resident's findings and plan as documented. SUBJECTIVE: Improvement in L testicular pain/tenderness. Fever resolved. No nausea/vomiting. No penile discharge. No further hematuria. OBJECTIVE: Fever resolved. Hemodynamically Stable. Last Vital Signs Temp Pulse Resp BP Pulse Ox 98 F 89 18 125/77 99 12/29/18 10:00 12/29/18 10:00 12/29/18 10:00 12/29/18 10:00 12/29/18 09:00 Heart - S1, S2, RRR Lungs - clear to auscultation Abdomen - soft, non-tender. Bowel sounds normal. Extremities - no edema, no calf tenderness. - L testicle no longer tender. Laboratory Results - last 24 hr 12/26/18 12/29/18 08:15 06:20 Sodium 139 Potassium 4.2 Chloride 106 Carbon Dioxide 28 Anion Gap 5 L BUN 14.3 Creatinine 1.3 Est GFR (CKD-EPI)AfAm 66.83 Est GFR (CKD-EPI)NonAf 57.66 Random Glucose 97 Calcium 8.7 Phosphorus 3.1 Magnesium 2.2 TB Test (QFT) Nil 0.03 TB Test (QFT) Mitogen 7.98 TB Test (QFT) Antigen 0.03 TB Test (QFT) Negative TB Positive Criteria Discharge Medications Medication Instructions Recorded Atorvastatin Ca [Lipitor] 40 mg PO HS 12/25/18 Metoprolol Succinate [Toprol Xl] 25 mg PO AM 12/25/18 Metoprolol Succinate [Toprol Xl] 100 mg PO DAILY 12/25/18 Ramipril [Altace] 5 mg PO AM 12/25/18 Warfarin Sodium [Coumadin] 7.5 mg PO DAILY 12/25/18 Tamsulosin HCl [Flomax -] 0.4 mg PO DAILY@0830 #30 cap.er.24h 12/28/18 ASSESSMENT/PLAN: 63 year old male with history of HTN, HLD, s/p AICD (? reason), BPH, who presented to the ED with fever, dysuria, hematuria. 1. Sepsis secondary to UTI/acute epididymitis/protatitis with EColi Bacteremia Fever resolved. Leukocytosis resolved. Urine/Blood Cx positive for EColi. Meropenem changed to Ceftriaxone as per ID - 2g daily for 10 days total s/p PICC line for home abx administration. GN/CH swab pending - can follow with Urology as out-patient for result. Scrotal US shows right scrotal cyst likely spermatocele, large left varicocele, evaluated by Urology - for out-patient follow up. 2. Gross hematuria - resolved. Renal/bladder US shows normal kidneys, 12 mm left kidney stone, markedly enlarged prostate with moderate PVR Coumadin resumed Outpatient follow up. 3. Non-obstructing left nephrolithiasis - follow up. 4. BPH - Continue Flomax 5. HTN - Continue Toprol XL, Ramipril. 6. Hyperlipidemia - Continue Lipitor 7. History of AICD - reason unclear. Will attempt to get more information/prior records. 8. Hypophosphatemia - recurrent, will replete. 9. MADDY sec to Sepsis - resolved with IV hydration. No obstruction on renal imaging. 10. Hx PAF and Chronic Systolic CHF - on Coumadin. EF now normal. Cardiology follow up with Dr. Luz Villavicencio at [facility]. DVT Px - on Coumadin. Medically optimized for discharge
== END 2018-12-29 11:14 | disposition home or self-care (01) | DRG 872 ==
LOC: JER 22:36 → JERBED 12-25 01:10 → J8W 12-25 06:38
PROVIDERS: ADMIT Internal Medicine
DX: A41.9 Sepsis, unspecified organism (principal); N39.0 Urinary tract infection, site not specified; N17.9 Acute kidney failure, unspecified; I50.22 Chronic systolic (congestive) heart failure; N41.9 Inflammatory disease of prostate, unspecified; D72.829 Elevated white blood cell count, unspecified; R00.0 Tachycardia, unspecified; E78.5 Hyperlipidemia, unspecified; N40.0 Benign prostatic hyperplasia without lower urinary tract symptoms; N45.1 Epididymitis; R31.0 Gross hematuria; E83.39 Other disorders of phosphorus metabolism; I48.0 Paroxysmal atrial fibrillation; I11.0 Hypertensive heart disease with heart failure; N28.1 Cyst of kidney, acquired; N20.0 Calculus of kidney; B96.20 Unspecified Escherichia coli [E. coli] as the cause of diseases classified elsewhere
CPT/HCPCS: 36415; 36569; 71045-TC-FY; 76775-TC; 76856-TC; 76870-TC; 77001-TC-FY; 80048; 80053; 81003; 83036; 83605; 83735; 84100; 85025; 85027; 85610; 85730; 86480; 87040; 87086; 87186; 87491; 87591; 93005; 93010; 93306-TC; 97116-GP; 97161-GP; 99284-25; C1751; J0131; J7030

== ENCOUNTER 2019-01-04 22:17 | Emergency (ER) | payer BC ==
[2019-01-04 22:26] VITALS: BP 148/98; PULSE 82; TEMP 98; BMI 29.8
--- NOTE | 2019-01-05 00:11 | PDOC ---
Suture Removal/Wound Check HPI - History of Present Illness Chief Complaint: Revisit,Wound Recheck Stated Complaint: CHANGE BANDAGE RT ARM Time Seen by Provider: 01/04/19 23:17 History Source: Yes: Patient, Old Records Exam Limitations: Yes: No Limitations Treated at: [facility] ED - Previous ED Treatment Type of procedure performed on last visit: Yes: Other Antibiotics Prescribed: Yes (Ceftriaxone 2 g IV daily for 10 days) Past History - Past Medical History Allergies/Adverse Reactions: Allergies Allergy/AdvReac Type Severity Reaction Status Date / Time No Known Allergies Allergy Verified 01/04/19 22:25 Home Medications: Ambulatory Orders Atorvastatin Ca [Lipitor] 40 mg PO HS 12/25/18 Metoprolol Succinate [Toprol Xl] 25 mg PO AM 12/25/18 Metoprolol Succinate [Toprol Xl] 100 mg PO DAILY 12/25/18 Ramipril [Altace] 5 mg PO AM 12/25/18 Warfarin Sodium [Coumadin] 7.5 mg PO DAILY 12/25/18 Tamsulosin HCl [Flomax -] 0.4 mg PO DAILY@0830 #30 cap.er.24h 12/28/18 Anemia: No Asthma: No Cancer: No Cardiac Disorders: Yes COPD: No DVT: No Dementia: No Diabetes: Yes GI Disorders: No Disorders: No HTN: Yes Thyroid Disease: No - Surgical History Cardiac Surgery: Yes - Immunization History Td Vaccination: Yes - Psycho Social/Smoking Cessation Hx Smoking History: Never smoked Have you smoked in the past 12 months: No Hx Alcohol Use: No Drug/Substance Use Hx: No Substance Use Type: None Hx Substance Use Treatment: No Suture Removal/Wound Check PE - Physical Exam Laceration/Wound Check Symptoms: reports: None Current Severity Level: None Maximum Severity Level: None Pain Localization: None Location of Laceration/Wound: right: Arm (PICC line) Pain Radiation: None *Physical Exam - Vital Signs Last Vital Signs Temp Pulse Resp BP Pulse Ox 98.0 F 82 18 148/98 97 01/04/19 22:20 01/04/19 22:20 01/04/19 22:20 01/04/19 22:20 01/04/19 22:20 - Physical Exam General Appearance: Yes: Appropriately Dressed. No: Apparent Distress HEENT: positive: Normal ENT Inspection Cardiovascular: positive: Regular Rhythm, Regular Rate. negative: Edema Extremity: positive: Normal Capillary Refill, Normal Inspection, Normal Range of Motion, Other (PICC line present in the right basilic vein for home infusion of ceftriaxone) Integumentary: positive: Normal Color, Dry, Warm Medical Decision Making - Medical Decision Making 01/05/19 00:01 A/P: 63-year-old male here for dressing change on his PICC line Physical exam was within normal limits Right upper extremity 34 cm circumferentially proximal to the insertion site of the PICC line. No erythema, discharge or drainage is present. No lymphangitis is noted. Dressing change performed Discharge home Discharge - Discharge Information Problems reviewed: Yes Clinical Impression/Diagnosis: Dressing change Condition: Stable Disposition: HOME - Admission No - Follow up/Referral Referrals: Moise Luna [Primary Care Provider] - - Patient Discharge Instructions Additional Instructions: Continue outpatient treatments as previously prescribed. Return to the emergency department for any new or worsening symptoms. Thank you very much for choosing us to provide your emergent health care needs. - Post Discharge Activity
== END 2019-01-05 00:18 | disposition home or self-care (01) ==
LOC: JER 22:17
DX: Z48.00 Encounter for change or removal of nonsurgical wound dressing (principal); Z95.828 Presence of other vascular implants and grafts; I10 Essential (primary) hypertension; E11.9 Type 2 diabetes mellitus without complications
CPT/HCPCS: 99282-25